=== PATIENT | female | born 1930 | race Caucasian/White ===

== ENCOUNTER 2017-03-18 07:46 | Day surgery (SDC) | payer OTHER ==
[2017-03-13 12:09] VITALS: BMI 30.4
[2017-03-18] MEDS ORDERED: PROPOFOL 20 ML ONE (08:06)
[2017-03-18] MEDS ORDERED: LIDOCAINE HCL/PF 2% SDV 5ML VIAL ONE (08:07)
[2017-03-18 10:51] VITALS: BP 122/78; PULSE 79; TEMP 98
--- NOTE | 2017-03-20 14:38 | PATH ---
Surgical Pathology Report Patient Name: ABHIJEET DENNIS [facility]. Rec. #: [id number] /Age/Gender: 1930 (Age: 87) / F Account: [id number] Location: [facility]-ENDOSCOPY Taken: 03/18/2017 Received: 03/18/2017 Reported: 03/20/2017 Physicians: Rafael Bradley M.D. Specimen(s) Received BX ANTRUM Clinical History Preoperative diagnoses: Dysphagia Postoperative diagnosis: Gastritis Final Diagnosis STOMACH, ANTRUM, BIOPSY: MILD CHRONIC GASTRITIS WITH INTESTINAL METAPLASIA. NO DYSPLASIA IDENTIFIED. IMMUNOSTAIN FOR H. PYLORI IS NEGATIVE. Electronically Signed John Hull M.D. Gross Description Received in formalin, labeled "antrum" are 3 mendosa, irregular portions of soft tissue ranging from 0.2-0.5 cm. in greatest dimension. The specimens are submitted in toto in one cassette. 03/19/201703/19/2017
== END 2017-03-18 10:54 ==
LOC: FASU-ENDO 07:46
PROVIDERS: ATTEND Internal Medicine Gastroenterology
PROC: 0DB68ZX Excision of Stomach, Via Natural or Artificial Opening Endoscopic, Diagnostic (ICD-10-PCS; principal; 2017-03-18 09:49)
PROC: 0D738ZZ Dilation of Lower Esophagus, Via Natural or Artificial Opening Endoscopic (ICD-10-PCS; 2017-03-18 09:49)
DX: K22.2 Esophageal obstruction (principal); K29.50 Unspecified chronic gastritis without bleeding; I25.10 Atherosclerotic heart disease of native coronary artery without angina pectoris; I10 Essential (primary) hypertension; E78.00 Pure hypercholesterolemia, unspecified
CPT/HCPCS: 88305-TC; 88342-TC

== ENCOUNTER 2017-06-01 13:43 | Inpatient (IN) | payer OTHER ==
[2017-06-01 13:55] VITALS: BMI 25.3
--- NOTE | 2017-06-01 14:02 | PDOC ---
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 Pt noted that the wound did not look good this morning in the clinic, but denies fever/chills, nausea, vomiting, cough,chest pain, SOB, dysuria. Patient has cardiacstents and peripheral stents in the RLE. She did not have transfer documents from [facility] to indicate whether or not she is currently on antibiotics. The note to the ED indicated that the patient will need angiogram. 06/01/17 15:02 Timing/Duration: constant Severity: moderate Associated Symptoms: reports: loss of appetite, weakness (bilateral paresis from waist down). denies: chest pain, cough, diaphoresis, fever/chills, nausea/ vomiting, shortness of breath, syncope Past History - Travel Traveled outside of the country in the last 30 days: No Close contact w/someone who was outside of country & ill: No - Past Medical History Allergies/Adverse Reactions: Allergies Allergy/AdvReac Type Severity Reaction Status Date / Time No Known Allergies Allergy Verified 06/01/17 15:53 Home Medications: Ambulatory Orders Bumetanide 0.5 mg PO DAILY 05/12/14 Clopidogrel Bisulfate [Clopidogrel] 75 mg PO DAILY 05/12/14 Dronedarone HCl [Multaq] 400 mg PO BID 05/12/14 Esomeprazole Mag Trihydrate [Nexium] 40 mg PO DAILY 05/12/14 Fesoterodine Fumarate [Toviaz] 4 mg PO DAILY 05/12/14 Acetaminophen [Tylenol .Regular Strength -] 650 mg PO BID 03/13/17 Atorvastatin Ca [Lipitor] 20 mg PO HS 03/13/17 Calcium Carb/Magnesium Hydrox [Antacid Chewable Tablet] 1 each PO BID 03/13/17 Carvedilol [Coreg] 3.125 mg PO DAILY 03/13/17 Cyclosporine [Restasis] 1 drop OU BID 03/13/17 Gabapentin [Neurontin] 400 mg PO TID 03/13/17 Multivit-Min/Iron Fum/Folic AC [Biihw-Wdstijw-Gdpqhtby Tablet] 1 tab PO DAILY Aspirin [ASA -] 81 mg PO DAILY tab.chew 04/17/17 Docusate Sodium [Colace -] 100 mg PO BID PRN capsule 04/17/17 Heparin - 5,000 unit SQ BID vial 04/17/17 Tolterodine Tartrate LA [Detrol LA -] 4 mg PO DAILY cap.sr.24h 04/17/17 Tramadol HCl 1 tab PO TID 06/01/17 Unobtainable Home Med List 06/01/17 Anemia: No Asthma: No Cancer: No Cardiac Disorders: Yes (ASHD CARDIAC STENTS AND CABG, VASCULAR DISEASE) CVA: No COPD: No CHF: Yes Dementia: No Diabetes: No GI Disorders: Yes (COLON POLYPS, ESOPHAGEAL STRICTURE) Disorders: No HTN: Yes Hypercholesterolemia: Yes Liver Disease: No Seizures: No Thyroid Disease: No Other medical history: pvd, bypass 2013 - Surgical History Abdominal Surgery: Yes Appendectomy: No Cardiac Surgery: Yes (QUADRUPLE CABG 2007) Cholecystectomy: No Lung Surgery: No Neurologic Surgery: No Orthopedic Surgery: No - Immunization History Immunization Up to Date: Yes - Suicide/Smoking/Psychosocial Hx Smoking History: Never smoked Have you smoked in the past 12 months: No If you are a former smoker, when did you quit?: 1994 Information on smoking cessation initiated: No Hx Alcohol Use: No Drug/Substance Use Hx: No Substance Use Type: None Hx Substance Use Treatment: No Review of Systems - Review of Systems Able to Perform ROS?: Yes Is the patient limited Italian proficient: No Constitutional: Yes: Loss of Appetite (noted weight loss for 1 month), Malaise, Weakness (Bilateral LE), Unintentional Wgt. Loss. No: Chills, Diaphoresis, Fever, Night Sweats HEENTM: No: Eye Pain, Blurred Vision, Tearing, Throat Pain, Throat Swelling, Difficulty Swallowing Respiratory: No: Cough, Orthopnea, Shortness of Breath, SOB at Rest, Wheezing, Productive cough Cardiac (ROS): No: Chest Pain, Edema, Palpitations, Syncope, Chest Tightness ABD/GI: No: Abdominal Distended : No: Burning, Dysuria, Flank Pain Musculoskeletal: Yes: Other (pain on LLE with 2nd toe gangrene) Neurological: Yes: Numbness (LLE), Paresthesia (LLE), Other (Wheelchair bound) *Physical Exam - Vital Signs Last Vital Signs Temp Pulse Resp BP Pulse Ox 97 F L 95 H 18 145/77 100 06/01/17 13:53 06/01/17 13:53 06/01/17 13:53 06/01/17 13:53 06/01/17 13:53 Heart Score/ECG Review - Electrocardiogram EKG: Normal - Age Age: >/= 65 - ECG Intrepretation Rhythm: Regular Rhythm - [place]: Normal - P and DE Delta Wave(s) Present: No WPW: No - QRS Poor R Wave Progression: No - ST and T Early Repolarization: No Non Specific ST-T Wave changes: No - ECG Impressions Normal ECG: Yes Torsades flo Pointes: No WPW: No ED Treatment Course - LABORATORY CBC & Chemistry Diagram: 06/01/17 16:05 06/01/17 16:05 Medical Decision Making - Medical Decision Making 06/01/17 15:00 Basic admission labs including CBC, CMP, PT, PTT, CXR, EKG have been ordered. Pt has been seen by Dr Matta in the past. I spoke with Dr Matta and he accepted her admission under him Patient has also been seen by Dr Mccarthy in the past. I spoke with him and he will evaluate the patient for antibiotic *DC/Admit/Observation/Transfer Diagnosis at time of Disposition: Gangrene, Leg wound, left - Discharge Dispostion Admit: Yes - Referrals Referrals: Daniele Ray MD [Primary Care Provider] - - Patient Instructions - Post Discharge Activity - Attestations Physician Attestion: 06/01/17 15:09 Ana Rosa Salazar MD
[2017-06-01] MEDS ORDERED: morphine CARPU-JECT 2 MG/1 ML DISP.SYRIN IVPUSH ONE (15:23)
--- NOTE | 2017-06-01 15:45 | PDOC ---
Attending Attestation - Resident Resident Name: MarieAna Rosa I - ED Attending Attestation I have performed the following: I have examined & evaluated the patient, The case was reviewed & discussed with the resident, I agree w/resident's findings & plan, Exceptions are as noted - HPI HPI: 06/01/17 15:42 87 year old female with CAD, CHF, HTN, PVD, GERD and osteoarthritis, colonic polyps sent from wound clinic for admission. 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 No fevers, or chills. Was evaluated in clinic and sent to ER for admission for IV abx. - Physicial Exam PE: 06/01/17 15:42 GENERAL: Awake, alert, and fully oriented, in no acute distress. HEAD: No signs of trauma EYES: PERRLA, EOMI, sclera anicteric, conjunctiva clear ENT: Auricles normal inspection, hearing grossly normal, nares patent NECK: Normal ROM, supple LUNGS: Breath sounds equal, clear to auscultation bilaterally. No wheezes, and no crackles HEART: Regular rate and rhythm, normal S1 and S2, no murmurs, rubs or gallops ABDOMEN: Soft, nontender. No guarding, no rebound. No masses EXTREMITIES: Bandage on LLE NEUROLOGICAL: Cranial nerves II through XII grossly intact. Normal speech - Medical Decision Making 06/01/17 15:45 Vital Signs Temp Pulse Resp BP Pulse Ox 97 F L 95 H 18 145/77 100 06/01/17 13:53 06/01/17 13:53 06/01/17 13:53 06/01/17 13:53 06/01/17 13:53 Left foot infection. I agree with the residents plan. Labs including cultures. IV abx Admission Heart Score/ECG Review #1 ECG reviewed & interpreted by me at: 15:50 06/01/17 16:14 NSR 95, no std/santiago, normal axis, normal intervals, QTC 475 msec
[2017-06-01 16:17] LABS: BASO % 0.7 % (0-2.0); EOS % 1.5 % (0-4.5); HEMATOCRIT 37.7 % (32.4-45.2); HEMOGLOBIN 12.5 GM/dL (10.7-15.3); LYMPH % 24.9 % (8-40); MCH 30.2 pg (25.7-33.7); MCHC 33.3 g/dl (32.0-36.0); MEAN CELL VOLUME 90.8 fl (80-96); MONO % 6.9 % (3.8-10.2); PLATELET COUNT 344 K/MM3 (134-434); RBC 4.15 M/mm3 (3.60-5.2); WHITE BLOOD COUNT 11.1 K/mm3 (4.0-10.0)
[2017-06-01 16:37] LABS: INR 1.19 (0.82-1.09); PROTHROMBIN TIME (PATIENT) 13.5 SEC (9.98-11.88)
[2017-06-01 16:39] LABS: ALBUMIN 3.9 g/dl (3.4-5.0); ALK PHOS 81 U/L (45-117); ANION GAP 9 (8-16); BILIRUBIN,TOTAL 0.4 mg/dL (0.2-1.0); BLOOD UREA NITROGEN 11 mg/dL (7-18); CALCIUM 9.5 mg/dL (8.5-10.1); CHLORIDE 99 mmol/L (98-107); CO2 26 mmol/L (21-32); CREATININE 0.8 mg/dL (0.55-1.02); GLUCOSE,RANDOM 83 mg/dL (74-106); SGPT/ALT 18 U/L (12-78); SODIUM 134 mmol/L (136-145); TOT PROT 8.9 g/dl (6.4-8.2)
[2017-06-01 16:41] LABS: SGOT/AST 39 U/L (15-37)
[2017-06-01] MEDS ORDERED: DOCUSATE SODIUM 100 MG CAPSULE (FP) PO PRN (16:59)
--- NOTE | 2017-06-01 17:01 | CON.ID ---
Consult Consult Specialty:: infectious diseases Reason for Consultation:: gangrene of the foot - History of Present Illness Chief Complaint: pain in the leg and change in color of the heel History of Present Illness: 87 year old female with CAD, CHF, HTN, PVD, GERD and osteoarthritis, colonic polyps sent from wound clinic for admission. 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 No fevers, or chills. Was evaluated in clinic and sent to ER for admission for IV abx. i know this patient from last admission patient also has developed gangrene of the heel denies any other symptoms - History Source History Provided By: Patient Limitations to Obtaining History: No Limitations - Alcohol/Substance Use Hx Alcohol Use: No - Smoking History Smoking history: Never smoked Have you smoked in the past 12 months: No If you are a former smoker, when did you quit?: 1994 Home Medications - Allergies Allergies/Adverse Reactions: Allergies Allergy/AdvReac Type Severity Reaction Status Date / Time No Known Allergies Allergy Verified 06/01/17 15:53 - Home Medications Home Medications: Ambulatory Orders Bumetanide 0.5 mg PO DAILY 05/12/14 Clopidogrel Bisulfate [Clopidogrel] 75 mg PO DAILY 05/12/14 Dronedarone HCl [Multaq] 400 mg PO BID 05/12/14 Esomeprazole Mag Trihydrate [Nexium] 40 mg PO DAILY 05/12/14 Fesoterodine Fumarate [Toviaz] 4 mg PO DAILY 05/12/14 Acetaminophen [Tylenol .Regular Strength -] 650 mg PO BID 03/13/17 Atorvastatin Ca [Lipitor] 20 mg PO HS 03/13/17 Calcium Carb/Magnesium Hydrox [Antacid Chewable Tablet] 1 each PO BID 03/13/17 Carvedilol [Coreg] 3.125 mg PO DAILY 03/13/17 Cyclosporine [Restasis] 1 drop OU BID 03/13/17 Gabapentin [Neurontin] 400 mg PO TID 03/13/17 Multivit-Min/Iron Fum/Folic AC [Letdp-Ckdfbdi-Cirmvgzu Tablet] 1 tab PO DAILY Aspirin [ASA -] 81 mg PO DAILY tab.chew 04/17/17 Docusate Sodium [Colace -] 100 mg PO BID PRN capsule 04/17/17 Heparin - 5,000 unit SQ BID vial 04/17/17 Tolterodine Tartrate LA [Detrol LA -] 4 mg PO DAILY cap.sr.24h 04/17/17 Tramadol HCl 1 tab PO TID 06/01/17 Review of Systems - Review of Systems Constitutional: reports: No Symptoms Eyes: reports: No Symptoms Neck: reports: No Symptoms Cardiovascular: reports: No Symptoms Genitourinary: reports: No Symptoms Musculoskeletal: reports: Joint Pain, Other Integumentary: reports: Change in Color, Erythema, Wound Neurological: reports: No Symptoms Endocrine: reports: No Symptoms Hematology/Lymphatic: reports: No Symptoms Psychiatric: reports: No Symptoms Physical Exam Vital Signs: Vital Signs Temperature 97 F L 06/01/17 13:53 Pulse Rate 95 H 06/01/17 13:53 Respiratory Rate 18 06/01/17 13:53 Blood Pressure 145/77 06/01/17 13:53 O2 Sat by Pulse Oximetry (%) 100 06/01/17 13:53 Constitutional: Yes: Well Nourished, Calm, Mild Distress Cardiovascular: Yes: Regular Rate and Rhythm Respiratory: Yes: Regular, CTA Bilaterally Gastrointestinal: Yes: Normal Bowel Sounds, Soft Musculoskeletal: Yes: Other Extremities: Yes: Other (gangrene of the heel and the toe) Neurological: Yes: Alert, Oriented Psychiatric: Yes: Alert, Oriented Labs: CBC, BMP 06/01/17 16:05 06/01/17 16:05 Imaging - Results Chest X-ray: Report Reviewed, Image Reviewed Assessment/Plan Problem List - Problems (1) CAD (coronary artery disease) Code(s): I25.10 - ATHSCL HEART DISEASE OF [place] CORONARY ARTERY W/O ANG PCTRS (2) Gangrene Code(s): I96 - GANGRENE, NOT ELSEWHERE CLASSIFIED (3) HTN (hypertension) Code(s): I10 - ESSENTIAL (PRIMARY) HYPERTENSION Qualifiers: Hypertension type: essential hypertension Qualified Code(s): I10 - Essential (primary) hypertension (4) Hx of CABG Code(s): Z95.1 - PRESENCE OF AORTOCORONARY BYPASS GRAFT (5) Hypercholesterolemia Code(s): E78.00 - PURE HYPERCHOLESTEROLEMIA, UNSPECIFIED (6) Leg wound, left Code(s): S81.802A - UNSPECIFIED OPEN WOUND, LEFT LOWER LEG, INITIAL ENCOUNTER (7) Paroxysmal atrial fibrillation Code(s): I48.0 - PAROXYSMAL ATRIAL FIBRILLATION 8 gangrene of the left heel plan will start on abx await for cx vascular input patient will probably need revascularization
--- NOTE | 2017-06-01 17:03 | HP ---
Admitting History and Physical - Primary Care Physician PCP: Demar Paige - Admission History of Present Illness: dictated - Smoking History Smoking history: Never smoked Have you smoked in the past 12 months: No If you are a former smoker, when did you quit?: 1994 - Alcohol/Substance Use Hx Alcohol Use: No Home Medications - Allergies Allergies/Adverse Reactions: Allergies Allergy/AdvReac Type Severity Reaction Status Date / Time No Known Allergies Allergy Verified 06/01/17 15:53 - Home Medications Home Medications: Ambulatory Orders Bumetanide 0.5 mg PO DAILY 05/12/14 Clopidogrel Bisulfate [Clopidogrel] 75 mg PO DAILY 05/12/14 Dronedarone HCl [Multaq] 400 mg PO BID 05/12/14 Esomeprazole Mag Trihydrate [Nexium] 40 mg PO DAILY 05/12/14 Fesoterodine Fumarate [Toviaz] 4 mg PO DAILY 05/12/14 Acetaminophen [Tylenol .Regular Strength -] 650 mg PO BID 03/13/17 Atorvastatin Ca [Lipitor] 20 mg PO HS 03/13/17 Calcium Carb/Magnesium Hydrox [Antacid Chewable Tablet] 1 each PO BID 03/13/17 Carvedilol [Coreg] 3.125 mg PO DAILY 03/13/17 Cyclosporine [Restasis] 1 drop OU BID 03/13/17 Gabapentin [Neurontin] 400 mg PO TID 03/13/17 Multivit-Min/Iron Fum/Folic AC [Nyxpu-Ttlzaei-Ckyktjmx Tablet] 1 tab PO DAILY Aspirin [ASA -] 81 mg PO DAILY tab.chew 04/17/17 Docusate Sodium [Colace -] 100 mg PO BID PRN capsule 04/17/17 Heparin - 5,000 unit SQ BID vial 04/17/17 Tolterodine Tartrate LA [Detrol LA -] 4 mg PO DAILY cap.sr.24h 04/17/17 Tramadol HCl 1 tab PO TID 06/01/17 Unobtainable Home Med List 06/01/17 Physical Examination Vital Signs: Vital Signs Temperature 97 F L 06/01/17 13:53 Pulse Rate 95 H 06/01/17 13:53 Respiratory Rate 18 06/01/17 13:53 Blood Pressure 145/77 06/01/17 13:53 O2 Sat by Pulse Oximetry (%) 100 06/01/17 13:53 Labs: CBC, BMP 06/01/17 16:05 06/01/17 16:05 Imaging - Results Chest X-ray: Report Reviewed EKG: Report Reviewed Problem List - Problems (1) Leg wound, left Code(s): S81.802A - UNSPECIFIED OPEN WOUND, LEFT LOWER LEG, INITIAL ENCOUNTER
[2017-06-01] MEDS ORDERED: PIPERACILLIN/TAZOB 3.375 GM 3.375 GM/50 ML BAG IVPB ONE (17:13)
[2017-06-01] MEDS: PIPERACILLIN/TAZOB 3.375 GM 3.375 GM in DEXTROSE 5%-WATER - 50 ML IVPB SCH (17:56)
--- NOTE | 2017-06-01 18:12 | PN ---
Progress Note (short form) - Note Progress Note: VAscular surgery Pt seen and examined in wound care today. Left second toe gangrene. History of cabg, and right lower ext bypass. Pt will need left lower ext angiogram. Please clear from a medical and cardiology standpoint. Jose Elias Hopkins DO
[2017-06-01 18:52] LABS: PLATELET ESTIMATE ADEQUATE
--- NOTE | 2017-06-01 19:17 | HP ---
DATE OF ADMISSION: 06/01/2017 This patient is an 87-year-old female with extensive past medical history of coronary artery disease, CHF, peripheral vascular disease, arthritis, diabetic neuropathy, osteoporosis, as well as history of hypertension, is admitted from Wound Care Clinic secondary to left 2nd toe gangrene with SFA occlusion. Dr. Hopkins is planning to do angiogram on her. Patient is a resident of [facility]. The patient was recently admitted to the hospital also a couple of months ago secondary to pneumonia. The patient was seen by me in the emergency room. Chart is reviewed and case also discussed with the emergency room physician as well as with patient's private PMD. PAST MEDICAL HISTORY: As mentioned. The patient has no known allergies. Patient's home medication list reviewed, as documented in the emergency room records. FAMILY HISTORY: Nothing available. PERSONAL HISTORY: Patient is ex-smoker, quit many years ago. REVIEW OF SYMPTOMS: Negative for chest pain or shortness of breath. Negative for abdominal pain. Negative for cough. Negative for headache or dizziness. Positive for numbness and pain in the feet and legs. PHYSICAL EXAMINATION: General: She is comfortable, sitting in the chair. Neck: Supple. Eyes: Pupils are reactive. Lungs: Clear to auscultation. Heart: Heart sounds regular. Abdomen: Soft. Extremities: Left lower extremity dressing in place. Right lower extremity pulses present but feeble. She is also status post bypass in right lower extremity. CBC showed slightly elevated white count 11.1, INR is 1.19. Electrolytes essentially okay. Chest x-ray did not show any focal infiltrate. ASSESSMENT AND PLAN: The patient is an 87-year-old white female with extensive past medical history, as mentioned, is being admitted to the hospital due to left 2nd toe gangrene. Further workup to be done, including angiogram. Will discuss with vascular surgeon, Dr. Hopkins. Antibiotics per ID. I also spoke with ID, Dr. Mccarthy, and he is going to follow up with the patient. Medication orders written. Monitor blood sugar. Will consult Cardiology also. Further recommendations will be guided by clinical course. HERRERA HEATH M.D. RAJENDRA/[id number]
[2017-06-01] MEDS ORDERED: MORPHINE SULFATE 10 MG/1 ML *VIAL ONE (20:29)
[2017-06-01] MEDS: morphine SULFATE 4 MG/ML VIAL IVPUSH PRN (20:45)
[2017-06-01] MEDS ORDERED: traMADol HCL 50 MG TABLET ONE (21:35)
[2017-06-01] MEDS ORDERED: traMADol HCL 50 MG TABLET PO PRN (22:00)
[2017-06-01] MEDS: HEPARIN NA (PORCINE) 5,000 UNITS/ML 1ML VIAL SQ SCH (22:01)
[2017-06-01] MEDS: ATORVASTATIN CA 20 MG TABLET (FP) PO SCH (22:01)
[2017-06-01] MEDS: CARVEDILOL 3.125 MG TABLET (FP) PO SCH (22:01)
[2017-06-01] MEDS: DRONEDARONE HCL 400 MG TAB (FP) PO SCH (22:02)
[2017-06-01] MEDS: traMADol HCL 50 MG TABLET PO SCH (22:02)
[2017-06-01] MEDS: GABAPENTIN 400 MG CAPSULE (FP) PO SCH (22:02)
[2017-06-02] MEDS: ACETAMINOPHEN 325 MG TABLET (FP) PO PRN ×4 (00:37→19:07)
[2017-06-02] MEDS ORDERED: PIPERACILLIN/TAZOBACTAM 3.375 GM VIAL IVPB ONE ×3 (01:44→18:59)
[2017-06-02] MEDS ORDERED: DEXTROSE 5%-WATER - 50 ML IVPB ONE ×3 (01:44→18:59)
[2017-06-02] MEDS: PIPERACILLIN/TAZOB 3.375 GM 3.375 GM in DEXTROSE 5%-WATER - 50 ML IVPB SCH ×3 (01:59→19:05)
[2017-06-02] MEDS: morphine SULFATE 4 MG/ML VIAL IVPUSH PRN (02:07)
[2017-06-02] MEDS: traMADol HCL 50 MG TABLET PO SCH (06:20)
[2017-06-02] MEDS: GABAPENTIN 400 MG CAPSULE (FP) PO SCH ×3 (06:20→21:35)
[2017-06-02 07:58] LABS: BASO % 0.4 % (0-2.0); EOS % 2.3 % (0-4.5); HEMATOCRIT 32.4 % (32.4-45.2); HEMOGLOBIN 10.7 GM/dL (10.7-15.3); LYMPH % 24.9 % (8-40); MCH 30.3 pg (25.7-33.7); MCHC 33.2 g/dl (32.0-36.0); MEAN CELL VOLUME 91.4 fl (80-96); MEAN PLT VOLUME 9.6 fl (7.5-11.1); MONO % 10.2 % (3.8-10.2); NEUT % 62.2 % (42.8-82.8); PLATELET COUNT 262 K/MM3 (134-434); RBC 3.54 M/mm3 (3.60-5.2); RDW 16.6 % (11.6-15.6); WHITE BLOOD COUNT 9.9 K/mm3 (4.0-10.0)
[2017-06-02 08:38] LABS: CHLORIDE 104 mmol/L (98-107); POTASSIUM 4.2 mmol/L (3.5-5.1); SODIUM 137 mmol/L (136-145)
[2017-06-02 08:57] LABS: ALK PHOS 64 U/L (45-117); ANION GAP 9 (8-16); BILIRUBIN,TOTAL 0.2 mg/dL (0.2-1.0); BLOOD UREA NITROGEN 15 mg/dL (7-18); CALCIUM 8.6 mg/dL (8.5-10.1); CO2 24 mmol/L (21-32); CREATININE 0.9 mg/dL (0.55-1.02); GLUCOSE,RANDOM 73 mg/dL (74-106); SGOT/AST 20 U/L (15-37); SGPT/ALT 12 U/L (12-78); TOT PROT 6.7 g/dl (6.4-8.2)
--- NOTE | 2017-06-02 09:08 | PN ---
Progress Note (short form) - Note Progress Note: Pt will need LLE angiogram. Awaiting medical and cardio clearances
--- NOTE | 2017-06-02 09:58 | CON.CARD ---
Consult Consult Specialty:: Cardiology Referred by:: Dr. Galindo Matta Reason for Consultation:: Cardiac evaluation and cardiac clearance - History of Present Illness Chief Complaint: Left lower extremity pain History of Present Illness: Patient is an 87 year old female of [place] with underlying history of coronary artery disease, s/p CABG (has a midline sternotomy wound), angina pectoris, hypertension, hypercholesterolemia, possible diabetic neuropathy ( hemoglobin A1c of 6.3) and PAD post lower extremity bypass (right) who presents with left lower extremity wound. She also states that she has had cardiac stent at [facility] in the past. She follows with Dr. Jarrell Ray ( [employer] who practices in [place]). She also has history of paroxysmal atrial fibrillation for which she takes Warfarin and Multaq. Currently, she denies chest pain, shortness of breath or palpitations. She denies paroxysmal nocturnal dyspnea or orthopnea. She denies fever or chills. She denies nausea, vomiting, diarrhea or abdominal pain. She denies headache or lightheadedness. Cardiology consultation was called for cardiac clearance. - History Source History Provided By: Patient, Medical Record Limitations to Obtaining History: No Limitations - Past Medical History Cardio/Vascular: Yes: AFIB, CAD (CABG), CHF, HTN, Hyperlipdemia Endocrine: Yes: Other (Possible diabetes (HGB A!C 6.3)) - Past Surgical History Past Surgical History: Yes: CABG, Cataract Removal, Hysterectomy, Stent Additional Surgical History: peripheral artery bypass - Alcohol/Substance Use Hx Alcohol Use: No - Smoking History Smoking history: Former smoker Have you smoked in the past 12 months: No If you are a former smoker, when did you quit?: 1994 Home Medications - Allergies Allergies/Adverse Reactions: Allergies Allergy/AdvReac Type Severity Reaction Status Date / Time No Known Allergies Allergy Verified 06/01/17 15:53 - Home Medications Home Medications: Ambulatory Orders Bumetanide 0.5 mg PO DAILY 05/12/14 Clopidogrel Bisulfate [Clopidogrel] 75 mg PO DAILY 05/12/14 Dronedarone HCl [Multaq] 400 mg PO BID 05/12/14 Esomeprazole Mag Trihydrate [Nexium] 40 mg PO DAILY 05/12/14 Fesoterodine Fumarate [Toviaz] 4 mg PO DAILY 05/12/14 Acetaminophen [Tylenol .Regular Strength -] 650 mg PO BID 03/13/17 Atorvastatin Ca [Lipitor] 20 mg PO HS 03/13/17 Calcium Carb/Magnesium Hydrox [Antacid Chewable Tablet] 1 each PO BID 03/13/17 Carvedilol [Coreg] 3.125 mg PO DAILY 03/13/17 Cyclosporine [Restasis] 1 drop OU BID 03/13/17 Gabapentin [Neurontin] 400 mg PO TID 03/13/17 Multivit-Min/Iron Fum/Folic AC [Qjjvq-Alouezw-Fykcikqw Tablet] 1 tab PO DAILY Aspirin [ASA -] 81 mg PO DAILY tab.chew 04/17/17 Docusate Sodium [Colace -] 100 mg PO BID PRN capsule 04/17/17 Heparin - 5,000 unit SQ BID vial 04/17/17 Tolterodine Tartrate LA [Detrol LA -] 4 mg PO DAILY cap.sr.24h 04/17/17 Tramadol HCl 1 tab PO TID 06/01/17 Unobtainable Home Med List 06/01/17 Family Disease History - Family Disease History Family Disease History: Heart Disease: Father, [place]: Mother (esophageal), Brother (esophageal) Review of Systems - Review of Systems Constitutional: denies: Chills, Fever Cardiovascular: denies: Chest Pain, Palpitations, Shortness of Breath Respiratory: denies: Cough, Hemoptysis, Orthopnea, PND, SOB, SOB on Exertion Gastrointestinal: denies: Abdominal Pain, Constipation, Diarrhea, Melena, Nausea , Rectal Bleeding, Vomiting Genitourinary: denies: Dysuria, Hematuria Neurological: denies: Dizziness, Headache, Seizure, Syncope Vital Signs: Vital Signs Temperature 98.2 F 06/02/17 06:44 Pulse Rate 82 06/02/17 06:44 Respiratory Rate 20 06/02/17 06:44 Blood Pressure 126/52 06/02/17 06:44 O2 Sat by Pulse Oximetry (%) 97 06/02/17 00:00 HENT: Yes: Atraumatic Neck: Yes: Supple Respiratory: Yes: CTA Bilaterally Gastrointestinal: Yes: Normal Bowel Sounds, Soft. No: Tenderness Cardiovascular: Yes: Regular Rate and Rhythm JVD: No Carotid Bruit: No PMI: Non-Displaced Heart Sounds: Yes: S1, S2 Murmur: Yes: Systolic Murmur (Soft KELLEN), Grade 1 Extremities: Yes: Other (left foot dressed) Edema: No - Other Data Labs, Other Data: CBC, BMP 06/02/17 06:40 06/02/17 06:40 INR, PTT INR 1.19 (0.82-1.09) H 06/01/17 16:05 Laboratory Results - last 24 hr 06/01/17 06/01/17 06/01/17 16:05 16:05 16:05 WBC 11.1 H RBC 4.15 D Hgb 12.5 D Hct 37.7 D MCV 90.8 MCH 30.2 MCHC 33.3 RDW 16.0 H Plt Count 344 D MPV 10.0 D Neutrophils % 66.0 Lymphocytes % 24.9 D Monocytes % 6.9 Eosinophils % 1.5 Basophils % 0.7 Platelet Estimate Adequate Platelet Comment PT with INR INR PTT (Actin FS) 28.6 Sodium 134 L Potassium 5.0 Chloride 99 Carbon Dioxide 26 Anion Gap 9 BUN 11 Creatinine 0.8 Creat Clearance w eGFR > 60 Random Glucose 83 Hemoglobin A1c % Calcium 9.5 Total Bilirubin 0.4 D AST 39 H ALT 18 Alkaline Phosphatase 81 Total Protein 8.9 H Albumin 3.9 06/01/17 06/02/17 06/02/17 16:05 06:40 06:40 WBC 9.9 RBC 3.54 L Hgb 10.7 D Hct 32.4 MCV 91.4 MCH 30.3 MCHC 33.2 RDW 16.6 H Plt Count 262 D MPV 9.6 Neutrophils % 62.2 Lymphocytes % 24.9 Monocytes % 10.2 Eosinophils % 2.3 Basophils % 0.4 Platelet Estimate Platelet Comment PT with INR 13.50 H INR 1.19 H PTT (Actin FS) Sodium 137 Potassium 4.2 Chloride 104 Carbon Dioxide 24 Anion Gap 9 BUN 15 Creatinine 0.9 Creat Clearance w eGFR 59.51 Random Glucose 73 L Hemoglobin A1c % Calcium 8.6 Total Bilirubin 0.2 D AST 20 ALT 12 Alkaline Phosphatase 64 Total Protein 6.7 Albumin 3.0 L 06/02/17 06:40 WBC RBC Hgb Hct MCV MCH MCHC RDW Plt Count MPV Neutrophils % Lymphocytes % Monocytes % Eosinophils % Basophils % Platelet Estimate Platelet Comment PT with INR INR PTT (Actin FS) Sodium Potassium Chloride Carbon Dioxide Anion Gap BUN Creatinine Creat Clearance w eGFR Random Glucose Hemoglobin A1c % 6.3 H Calcium Total Bilirubin AST ALT Alkaline Phosphatase Total Protein Albumin Sinus rhythm with no significant ST-T abnormality Echo: Pending Imaging - Results Chest X-ray: Report Reviewed (Atelectasis) EKG: Report Reviewed Problem List - Problems (1) CAD (coronary artery disease) Code(s): I25.10 - ATHSCL HEART DISEASE OF [place] CORONARY ARTERY W/O ANG PCTRS (2) Hx of CABG Code(s): Z95.1 - PRESENCE OF AORTOCORONARY BYPASS GRAFT (3) Paroxysmal atrial fibrillation Code(s): I48.0 - PAROXYSMAL ATRIAL FIBRILLATION (4) HTN (hypertension) Code(s): I10 - ESSENTIAL (PRIMARY) HYPERTENSION Qualifiers: Hypertension type: essential hypertension Qualified Code(s): I10 - Essential (primary) hypertension (5) Hypercholesterolemia Code(s): E78.00 - PURE HYPERCHOLESTEROLEMIA, UNSPECIFIED (6) Elevated hemoglobin A1c Code(s): R73.09 - OTHER ABNORMAL GLUCOSE (7) Gangrene Code(s): I96 - GANGRENE, NOT ELSEWHERE CLASSIFIED (8) Leg wound, left Code(s): S81.802A - UNSPECIFIED OPEN WOUND, LEFT LOWER LEG, INITIAL ENCOUNTER (9) Pneumonia Code(s): J18.9 - PNEUMONIA, UNSPECIFIED ORGANISM Assessment/Plan 1. Preoperative cardiovascular evaluation 2. Coronary artery disease post CABG, PCI/stent, angina pectoris 3. Paroxysmal atrial fibrillation currently in sinus rhythm on Warfarin therapy (currently INR reversed) [id number] score of at least 7 4. Hypertension 5. Hypercholesterolemia 6. Elevated Hemoglobin A1C with possible diabetic neuropathy - not on diabetes medication 7. PAD post lower extremity bypass currently with left SFA occlusion and left toe gangrene PLAN: 1. Continue Carvedilol 2. Consider adding ACEI or ARB as BP, renal function and electrolytes tolerates 3. Continue ASA and Plavix for now 4. Currently on Multaq (started by Dr. Ray) as patient does not exhibit any signs of heart failure 5. Transthoracic echocardiography to assess LV/RV and valvular function prior to vascular intervention 6. If patient were to undergo surgical intervention, she will need further cardiac work up including nuclear myocardial perfusion imaging study ( pharmacological) for risk stratification. For an angiography, it would be acceptable to proceed as currently she does not exhibit any ischemic symptoms, decompensated congestive heart failure or malignant arrhythmias 7. Eventually will need to restart Warfarin therapy with INR between 2-3 Further plans are to follow Rodolfo Malhotra MD
[2017-06-02] MEDS ORDERED: FESOTERODINE FUMARATE 4 MG PO SCH (10:00)
[2017-06-02] MEDS ORDERED: PT OWN MED DRAWER 7, Y5N ONE (10:08)
[2017-06-02] MEDS: PANTOPRAZOLE 40 MG TABLET (FP) PO SCH (10:16)
[2017-06-02] MEDS: ASPIRIN 81 MG CHEWABLE TABLETS PO SCH (10:16)
[2017-06-02] MEDS: MULTIVITAMINS THER W-MINERALS COMBO TABLET (FP) PO SCH (10:16)
[2017-06-02] MEDS: HEPARIN NA (PORCINE) 5,000 UNITS/ML 1ML VIAL SQ SCH ×2 (10:17→22:08)
[2017-06-02] MEDS: CLOPIDOGREL BISULFATE 75 MG TABLET (FP) PO SCH (10:17)
[2017-06-02] MEDS: TOLTERODINE TARTRATE LA 4 MG CAP.SR.24H (FP) PO SCH (10:20)
[2017-06-02] MEDS: CARVEDILOL 3.125 MG TABLET (FP) PO SCH ×2 (10:20→21:35)
--- NOTE | 2017-06-02 10:49 | PN ---
Progress Note, Physician Chief Complaint: Events noted Pt c/o pain in left leg Dressing removed - Current Medication List Current Medications: Active Medications Acetaminophen (Tylenol -) 650 mg PO Q4H PRN PRN Reason: PAIN LEVEL 1-5 Last Admin: 06/02/17 04:20 Dose: 650 mg Aspirin (Asa -) 81 mg PO DAILY [facility] Last Admin: 06/02/17 10:16 Dose: 81 mg Atorvastatin Calcium (Lipitor -) 20 mg PO HS [facility] Last Admin: 06/01/17 22:01 Dose: 20 mg Bumetanide (Bumex -) 0.5 mg PO DAILY [facility] Carvedilol (Coreg -) 3.125 mg PO BID [facility] Last Admin: 06/02/17 10:20 Dose: 3.125 mg Clopidogrel Bisulfate (Plavix -) 75 mg PO DAILY [facility] Last Admin: 06/02/17 10:17 Dose: 75 mg Docusate Sodium (Colace -) 100 mg PO BID PRN PRN Reason: CONSTIPATION Dronedarone (Multaq -) 400 mg PO BID [facility] Last Admin: 06/01/17 22:02 Dose: 400 mg Gabapentin (Neurontin -) 400 mg PO TID [facility] Last Admin: 06/02/17 06:20 Dose: 400 mg Heparin Sodium (Porcine) (Heparin -) 5,000 unit SQ BID [facility] Last Admin: 06/02/17 10:17 Dose: 5,000 unit Piperacillin Sod/Tazobactam (Sod 3.375 gm/ Dextrose) 50 mls @ 100 mls/hr IVPB Q8H-IV [facility] PRN Reason: Protocol Last Admin: 06/02/17 10:16 Dose: 100 mls/hr Morphine Sulfate (Morphine Sulfate) 2 mg IVPUSH Q4H PRN PRN Reason: PAIN LEVEL 6-10 Last Admin: 06/02/17 02:07 Dose: 2 mg Multivitamins/Minerals (Theragran-M) 1 each PO DAILY [facility] Last Admin: 06/02/17 10:16 Dose: 1 each Oxycodone HCl (Roxicodone -) 5 mg PO Q4H PRN PRN Reason: PAIN LEVEL 6-10 Pantoprazole Sodium (Protonix -) 40 mg PO DAILY [facility] Last Admin: 06/02/17 10:16 Dose: 40 mg Tolterodine Tartrate (Detrol La -) 4 mg PO DAILY [facility] Last Admin: 06/02/17 10:20 Dose: 4 mg - Objective Vital Signs: Vital Signs Temperature 98.2 F 06/02/17 06:44 Pulse Rate 82 06/02/17 06:44 Respiratory Rate 20 06/02/17 06:44 Blood Pressure 126/52 06/02/17 06:44 O2 Sat by Pulse Oximetry (%) 97 06/02/17 00:00 Constitutional: Yes: No Distress Cardiovascular: Yes: Regular Rate and Rhythm, Murmur Respiratory: Yes: CTA Bilaterally Gastrointestinal: Yes: Normal Bowel Sounds, Soft. No: Tenderness Extremities: Yes: Other (left 2nd toe-- ulcer on tip, ulcer with black eschar in heel) Edema: Yes Edema: LLE: Trace Neurological: Yes: Alert, Oriented Psychiatric: Yes: Alert, Oriented Labs: CBC, BMP 06/02/17 06:40 06/02/17 06:40 INR, PTT INR 1.19 (0.82-1.09) H 06/01/17 16:05 Problem List - Problems (1) CAD (coronary artery disease) Code(s): I25.10 - ATHSCL HEART DISEASE OF [place] CORONARY ARTERY W/O ANG PCTRS (2) Gangrene Code(s): I96 - GANGRENE, NOT ELSEWHERE CLASSIFIED (3) HTN (hypertension) Code(s): I10 - ESSENTIAL (PRIMARY) HYPERTENSION Qualifiers: Hypertension type: essential hypertension Qualified Code(s): I10 - Essential (primary) hypertension (4) Hx of CABG Code(s): Z95.1 - PRESENCE OF AORTOCORONARY BYPASS GRAFT (5) Hypercholesterolemia Code(s): E78.00 - PURE HYPERCHOLESTEROLEMIA, UNSPECIFIED (6) Leg wound, left Code(s): S81.802A - UNSPECIFIED OPEN WOUND, LEFT LOWER LEG, INITIAL ENCOUNTER (7) Paroxysmal atrial fibrillation Code(s): I48.0 - PAROXYSMAL ATRIAL FIBRILLATION Assessment/Plan PLAN Continue with antibiotics Dry dressing daily Vascular and cardiology eval noted Echo pending continue with meds pain control with oxycodone PRN for angiogram
--- NOTE | 2017-06-02 11:38 | SPA.PREOP ---
- PRE-OP NOTE Dx: L 2nd toe gangrene with SFA occlusion Planned Procedure: LLE angiogram possible angioplasty Surgeon: Jose Elias Hopkins Consent: To be obtained after surgeon explains all risks, benefits and alternatives to patient and or HCP. Last Vital Signs Temp Pulse Resp BP Pulse Ox 98.2 F 82 20 126/52 97 06/02/17 06:44 06/02/17 06:44 06/02/17 06:44 06/02/17 06:44 06/02/17 00:00 Lab Results WBC 9.9 K/mm3 (4.0-10.0) 06/02/17 06:40 RBC 3.54 M/mm3 (3.60-5.2) L 06/02/17 06:40 Hgb 10.7 GM/dL (10.7-15.3) D 06/02/17 06:40 Hct 32.4 % (32.4-45.2) 06/02/17 06:40 MCV 91.4 fl (80-96) 06/02/17 06:40 MCHC 33.2 g/dl (32.0-36.0) 06/02/17 06:40 RDW 16.6 % (11.6-15.6) H 06/02/17 06:40 Plt Count 262 K/MM3 (134-434) D 06/02/17 06:40 Sodium 137 mmol/L (136-145) 06/02/17 06:40 Potassium 4.2 mmol/L (3.5-5.1) 06/02/17 06:40 Chloride 104 mmol/L (98-107) 06/02/17 06:40 Carbon Dioxide 24 mmol/L (21-32) 06/02/17 06:40 Anion Gap 9 (8-16) 06/02/17 06:40 BUN 15 mg/dL (7-18) 06/02/17 06:40 Creatinine 0.9 mg/dL (0.55-1.02) 06/02/17 06:40 Random Glucose 73 mg/dL (74-106) L 06/02/17 06:40 Calcium 8.6 mg/dL (8.5-10.1) 06/02/17 06:40 INR 1.19 (0.82-1.09) H 06/01/17 16:05 - ASSESSMENT/PLAN Problem List - Problems (1) Leg wound, left Assessment/Plan: 1. Plan on taking to OR 06/04/17 2. Make NPO after midnight except po meds 3. GI/DVT PPX 4. Medical optimization / clearance Code(s): S81.802A - UNSPECIFIED OPEN WOUND, LEFT LOWER LEG, INITIAL ENCOUNTER Visit type - Case Type Case Type: ED Admission
[2017-06-02] MEDS: PATIENT'S OWN MEDICATION (NON-FORMULARY) (Cyclosporine [Restasis] 1 DROP) OU SCH ×2 (11:45→11:46)
[2017-06-02] MEDS: oxyCODONE HCL 5 MG TABLET PO PRN ×3 (11:52→23:31)
[2017-06-02] MEDS: DRONEDARONE HCL 400 MG TAB (FP) PO SCH ×2 (11:53→21:37)
[2017-06-02] MEDS: BUMETANIDE 0.5 MG TABLET PO SCH (13:18)
[2017-06-02 13:19] LABS: URINE APPEARANCE CLOUDY; URINE BILIRUBIN NEGATIVE (<2.0 mg/dL); URINE COLOR YELLOW; URINE GLUCOSE (UA) NEGATIVE (NEGATIVE); URINE KETONE NEGATIVE (NEGATIVE); URINE NITRITE NEGATIVE (NEGATIVE); URINE PROTEIN NEGATIVE (NEGATIVE); URINE UROBILINOGEN NEGATIVE mg/dL (0.2-1.0)
[2017-06-02 13:20] LABS: URINE LEUK ESTERASE 3+ (NEGATIVE)
[2017-06-02 13:25] LABS: EPI CELLS FEW /HPF (FEW); URINE BACTERIA RARE /hpf (NONE SEEN); URINE MUCUS RARE
--- NOTE | 2017-06-02 13:47 | PN ---
Progress Note, Physician History of Present Illness: stable doing well no issues wound noted - Current Medication List Current Medications: Active Medications Acetaminophen (Tylenol -) 650 mg PO Q4H PRN PRN Reason: PAIN LEVEL 1-5 Last Admin: 06/02/17 11:52 Dose: 650 mg Aspirin (Asa -) 81 mg PO DAILY [facility] Last Admin: 06/02/17 10:16 Dose: 81 mg Atorvastatin Calcium (Lipitor -) 20 mg PO HS [facility] Last Admin: 06/01/17 22:01 Dose: 20 mg Bumetanide (Bumex -) 0.5 mg PO DAILY [facility] Last Admin: 06/02/17 13:18 Dose: 0.5 mg Carvedilol (Coreg -) 3.125 mg PO BID [facility] Last Admin: 06/02/17 10:20 Dose: 3.125 mg Clopidogrel Bisulfate (Plavix -) 75 mg PO DAILY [facility] Last Admin: 06/02/17 10:17 Dose: 75 mg Docusate Sodium (Colace -) 100 mg PO BID PRN PRN Reason: CONSTIPATION Dronedarone (Multaq -) 400 mg PO BID [facility] Last Admin: 06/02/17 11:53 Dose: 400 mg Gabapentin (Neurontin -) 400 mg PO TID [facility] Last Admin: 06/02/17 13:18 Dose: 400 mg Heparin Sodium (Porcine) (Heparin -) 5,000 unit SQ BID [facility] Last Admin: 06/02/17 10:17 Dose: 5,000 unit Piperacillin Sod/Tazobactam (Sod 3.375 gm/ Dextrose) 50 mls @ 100 mls/hr IVPB Q8H-IV [facility] PRN Reason: Protocol Last Admin: 06/02/17 10:16 Dose: 100 mls/hr Multivitamins/Minerals (Theragran-M) 1 each PO DAILY [facility] Last Admin: 06/02/17 10:16 Dose: 1 each Oxycodone HCl (Roxicodone -) 5 mg PO Q4H PRN PRN Reason: PAIN LEVEL 6-10 Last Admin: 06/02/17 11:52 Dose: 5 mg Pantoprazole Sodium (Protonix -) 40 mg PO DAILY [facility] Last Admin: 06/02/17 10:16 Dose: 40 mg Tolterodine Tartrate (Detrol La -) 4 mg PO DAILY [facility] Last Admin: 06/02/17 10:20 Dose: 4 mg - Objective Vital Signs: Vital Signs Temperature 98.2 F 06/02/17 06:44 Pulse Rate 82 06/02/17 06:44 Respiratory Rate 20 06/02/17 06:44 Blood Pressure 126/52 06/02/17 06:44 O2 Sat by Pulse Oximetry (%) 97 06/02/17 00:00 Constitutional: Yes: Calm, Mild Distress Cardiovascular: Yes: Regular Rate and Rhythm Respiratory: Yes: Regular, CTA Bilaterally Gastrointestinal: Yes: Normal Bowel Sounds, Soft Musculoskeletal: Yes: WNL Extremities: Yes: Other Wound/Incision: Yes: Open to air, Other (gangrene of the heel and discoloration of the toe) Neurological: Yes: Alert, Oriented Psychiatric: Yes: Alert Labs: CBC, BMP 06/02/17 06:40 06/02/17 06:40 INR, PTT INR 1.19 (0.82-1.09) H 06/01/17 16:05 Assessment/Plan Problem List - Problems (1) CAD (coronary artery disease) Code(s): I25.10 - ATHSCL HEART DISEASE OF [place] CORONARY ARTERY W/O ANG PCTRS (2) Gangrene Code(s): I96 - GANGRENE, NOT ELSEWHERE CLASSIFIED (3) HTN (hypertension) Code(s): I10 - ESSENTIAL (PRIMARY) HYPERTENSION Qualifiers: Hypertension type: essential hypertension Qualified Code(s): I10 - Essential (primary) hypertension (4) Hx of CABG Code(s): Z95.1 - PRESENCE OF AORTOCORONARY BYPASS GRAFT (5) Hypercholesterolemia Code(s): E78.00 - PURE HYPERCHOLESTEROLEMIA, UNSPECIFIED (6) Leg wound, left Code(s): S81.802A - UNSPECIFIED OPEN WOUND, LEFT LOWER LEG, INITIAL ENCOUNTER (7) Paroxysmal atrial fibrillation Code(s): I48.0 - PAROXYSMAL ATRIAL FIBRILLATION 8 gangrene of the left heel plan continue abx vascular input rest as per the primary team pressure off of the heel
--- NOTE | 2017-06-02 16:53 | EKG ---
Test Reason : Blood Pressure : / mmHG Vent. Rate : 095 BPM Atrial Rate : 095 BPM P-R Int : 146 ms QRS Dur : 068 ms QT Int : 378 ms P-R-T Axes : 049 011 061 degrees QTc Int : 475 ms POOR DATA QUALITY, INTERPRETATION MAY BE ADVERSELY AFFECTED NORMAL SINUS RHYTHM INFERIOR INFARCT , AGE UNDETERMINED ABNORMAL ECG WHEN COMPARED WITH ECG OF 10-APR-2017 15:46, ST NO LONGER DEPRESSED IN ANTERIOR LEADS Confirmed by MD Jaylen, José Miguel ([id number]) on 06/02/2017 4:53:25 PM Referred By: Confirmed By:José Miguel York MD
[2017-06-02] MEDS: ATORVASTATIN CA 20 MG TABLET (FP) PO SCH (21:35)
[2017-06-03] MEDS: ACETAMINOPHEN 325 MG TABLET (FP) PO PRN ×4 (00:01→21:53)
[2017-06-03] MEDS ORDERED: PIPERACILLIN/TAZOBACTAM 3.375 GM VIAL IVPB ONE ×3 (01:28→17:27)
[2017-06-03] MEDS ORDERED: DEXTROSE 5%-WATER - 50 ML IVPB ONE ×3 (01:28→17:27)
[2017-06-03] MEDS: PIPERACILLIN/TAZOB 3.375 GM 3.375 GM in DEXTROSE 5%-WATER - 50 ML IVPB SCH ×3 (01:37→17:36)
[2017-06-03] MEDS: GABAPENTIN 400 MG CAPSULE (FP) PO SCH ×3 (05:03→21:55)
[2017-06-03] MEDS: oxyCODONE HCL 5 MG TABLET PO PRN ×5 (05:03→21:52)
[2017-06-03 07:49] LABS: HEMATOCRIT 30.8 % (32.4-45.2); HEMOGLOBIN 10.1 GM/dL (10.7-15.3); MCHC 32.9 g/dl (32.0-36.0); MEAN PLT VOLUME 9.2 fl (7.5-11.1); PLATELET COUNT 256 K/MM3 (134-434); RBC 3.38 M/mm3 (3.60-5.2); RDW 16.1 % (11.6-15.6); WHITE BLOOD COUNT 13.7 K/mm3 (4.0-10.0)
[2017-06-03 08:16] LABS: ANION GAP 7 (8-16); BLOOD UREA NITROGEN 16 mg/dL (7-18); CALCIUM 8.2 mg/dL (8.5-10.1); CHLORIDE 106 mmol/L (98-107); CO2 26 mmol/L (21-32); CREATININE 0.9 mg/dL (0.55-1.02); GLUCOSE,RANDOM 81 mg/dL (74-106); POTASSIUM 3.9 mmol/L (3.5-5.1); SODIUM 139 mmol/L (136-145)
[2017-06-03] MEDS ORDERED: PT OWN MED DRAWER 7, Y5N ONE ×3 (09:32→21:44)
[2017-06-03] MEDS: ASPIRIN 81 MG CHEWABLE TABLETS PO SCH (09:34)
[2017-06-03] MEDS: CLOPIDOGREL BISULFATE 75 MG TABLET (FP) PO SCH (09:34)
[2017-06-03] MEDS: HEPARIN NA (PORCINE) 5,000 UNITS/ML 1ML VIAL SQ SCH ×2 (09:34→21:55)
[2017-06-03] MEDS: MULTIVITAMINS THER W-MINERALS COMBO TABLET (FP) PO SCH (09:34)
[2017-06-03] MEDS: CARVEDILOL 3.125 MG TABLET (FP) PO SCH ×2 (09:34→21:53)
[2017-06-03] MEDS: PANTOPRAZOLE 40 MG TABLET (FP) PO SCH (09:35)
[2017-06-03] MEDS: DRONEDARONE HCL 400 MG TAB (FP) PO SCH ×2 (09:36→21:56)
[2017-06-03] MEDS: TOLTERODINE TARTRATE LA 4 MG CAP.SR.24H (FP) PO SCH (09:36)
[2017-06-03] MEDS: BUMETANIDE 0.5 MG TABLET PO SCH (09:37)
--- NOTE | 2017-06-03 12:23 | PN ---
Progress Note, Physician History of Present Illness: Reports left foot ischemic discomfort. - Current Medication List Current Medications: Active Medications Acetaminophen (Tylenol -) 650 mg PO Q4H PRN PRN Reason: PAIN LEVEL 1-5 Last Admin: 06/03/17 09:35 Dose: 650 mg Aspirin (Asa -) 81 mg PO DAILY [facility] Last Admin: 06/03/17 09:34 Dose: 81 mg Atorvastatin Calcium (Lipitor -) 20 mg PO HS [facility] Last Admin: 06/02/17 21:35 Dose: 20 mg Bumetanide (Bumex -) 0.5 mg PO DAILY [facility] Last Admin: 06/03/17 09:37 Dose: 0.5 mg Carvedilol (Coreg -) 3.125 mg PO BID [facility] Last Admin: 06/03/17 09:34 Dose: 3.125 mg Clopidogrel Bisulfate (Plavix -) 75 mg PO DAILY [facility] Last Admin: 06/03/17 09:34 Dose: 75 mg Docusate Sodium (Colace -) 100 mg PO BID PRN PRN Reason: CONSTIPATION Last Admin: 06/02/17 19:07 Dose: 100 mg Dronedarone (Multaq -) 400 mg PO BID [facility] Last Admin: 06/03/17 09:36 Dose: 400 mg Gabapentin (Neurontin -) 400 mg PO TID [facility] Last Admin: 06/03/17 05:03 Dose: 400 mg Heparin Sodium (Porcine) (Heparin -) 5,000 unit SQ BID [facility] Last Admin: 06/03/17 09:34 Dose: 5,000 unit Piperacillin Sod/Tazobactam (Sod 3.375 gm/ Dextrose) 50 mls @ 100 mls/hr IVPB Q8H-IV [facility] PRN Reason: Protocol Last Admin: 06/03/17 09:34 Dose: 100 mls/hr Multivitamins/Minerals (Theragran-M) 1 each PO DAILY [facility] Last Admin: 06/03/17 09:34 Dose: 1 each Oxycodone HCl (Roxicodone -) 5 mg PO Q4H PRN PRN Reason: PAIN LEVEL 6-10 Last Admin: 06/03/17 09:34 Dose: 5 mg Pantoprazole Sodium (Protonix -) 40 mg PO DAILY [facility] Last Admin: 06/03/17 09:35 Dose: 40 mg Tolterodine Tartrate (Detrol La -) 4 mg PO DAILY [facility] Last Admin: 06/03/17 09:36 Dose: 4 mg - Objective Vital Signs: Vital Signs Temperature 98.6 F 06/03/17 10:39 Pulse Rate 87 06/03/17 10:39 Respiratory Rate 18 06/03/17 10:39 Blood Pressure 127/68 06/03/17 10:39 O2 Sat by Pulse Oximetry (%) 97 06/03/17 09:00 Constitutional: Yes: No Distress, Calm, Thin Neck: Yes: Supple Cardiovascular: Yes: Regular Rate and Rhythm Respiratory: Yes: Regular, CTA Bilaterally Gastrointestinal: Yes: Normal Bowel Sounds, Soft Edema: No Wound/Incision: Yes: Dressing Dry and Intact Labs: CBC, BMP 06/03/17 06:30 06/03/17 06:30 INR, PTT INR 1.19 (0.82-1.09) H 06/01/17 16:05 Problem List - Problems (1) Peripheral artery disease Code(s): I73.9 - PERIPHERAL VASCULAR DISEASE, UNSPECIFIED (2) CAD (coronary artery disease) Code(s): I25.10 - ATHSCL HEART DISEASE OF [place] CORONARY ARTERY W/O ANG PCTRS Qualifiers: Coronary Disease-Associated Artery/Lesion type: [place] artery [place] vs. transplanted heart: [place] heart Associated angina: without angina Qualified Code(s): I25.10 - Atherosclerotic heart disease of [place] coronary artery without angina pectoris (3) Gangrene Code(s): I96 - GANGRENE, NOT ELSEWHERE CLASSIFIED (4) Hx of CABG Code(s): Z95.1 - PRESENCE OF AORTOCORONARY BYPASS GRAFT (5) Hypercholesterolemia Code(s): E78.00 - PURE HYPERCHOLESTEROLEMIA, UNSPECIFIED (6) Leg wound, left Code(s): S81.802A - UNSPECIFIED OPEN WOUND, LEFT LOWER LEG, INITIAL ENCOUNTER Qualifiers: Encounter type: subsequent encounter Qualified Code(s): S81.802D - Unspecified open wound, left lower leg, subsequent encounter (7) Paroxysmal atrial fibrillation Code(s): I48.0 - PAROXYSMAL ATRIAL FIBRILLATION (8) S/P coronary artery stent placement Code(s): Z95.5 - PRESENCE OF CORONARY ANGIOPLASTY IMPLANT AND GRAFT (9) HTN (hypertension) Code(s): I10 - ESSENTIAL (PRIMARY) HYPERTENSION Qualifiers: Hypertension type: essential hypertension Qualified Code(s): I10 - Essential (primary) hypertension Assessment/Plan 06/02/2017 Echo: Normal biventricular size and fxn with mild TR 1. Pre-operative cardiovascular evaluation 2. Coronary artery disease post CABG, PCI/stent, angina pectoris 3. Paroxysmal atrial fibrillation currently in sinus rhythm on Warfarin therapy (currently INR reversed) [id number] score of at least 7 4. Hypertension 5. Hypercholesterolemia 6. Elevated Hemoglobin A1C with possible diabetic neuropathy - not on diabetes medication 7. PAD post right lower extremity bypass currently with left SFA occlusion and left 2nd toe gangrene PLAN: 1. Continue Carvedilol 3.125 bid, Lipitor 20 qhs 2. Start losartan 25 qd, d/c Bumex,and f/u renal function and electrolytes 3. Continue ASA 81 qd and Plavix 75 qd for now, would d/c ASA once INR is therapeutic 4. Currently on Multaq 400 bid (started by Dr. Ray) as patient does not exhibit any signs of heart failure 5. If patient were to undergo surgical intervention, she will need further cardiac work up including nuclear myocardial perfusion imaging study ( pharmacological) for risk stratification. For an LLE angiography and possible angioplasty, it would be acceptable to proceed as currently she does not exhibit any ischemic symptoms, decompensated congestive heart failure or malignant arrhythmias 6. Eventually will need to restart Warfarin therapy with INR between 2-3, DVT and GI prophylaxis 7. Empiric abx course
[2017-06-03] MEDS ORDERED: LOSARTAN POTASSIUM 25 MG TABLET PO SCH (12:45)
--- NOTE | 2017-06-03 13:16 | PN ---
Progress Note, Physician Chief Complaint: Events noted Pt c/o pain in left leg pt sitting in chair - Current Medication List Current Medications: Active Medications Acetaminophen (Tylenol -) 650 mg PO Q4H PRN PRN Reason: PAIN LEVEL 1-5 Last Admin: 06/03/17 09:35 Dose: 650 mg Aspirin (Asa -) 81 mg PO DAILY [facility] Last Admin: 06/03/17 09:34 Dose: 81 mg Atorvastatin Calcium (Lipitor -) 20 mg PO HS [facility] Last Admin: 06/02/17 21:35 Dose: 20 mg Carvedilol (Coreg -) 3.125 mg PO BID [facility] Last Admin: 06/03/17 09:34 Dose: 3.125 mg Clopidogrel Bisulfate (Plavix -) 75 mg PO DAILY [facility] Last Admin: 06/03/17 09:34 Dose: 75 mg Docusate Sodium (Colace -) 100 mg PO BID PRN PRN Reason: CONSTIPATION Last Admin: 06/02/17 19:07 Dose: 100 mg Dronedarone (Multaq -) 400 mg PO BID [facility] Last Admin: 06/03/17 09:36 Dose: 400 mg Gabapentin (Neurontin -) 400 mg PO TID [facility] Last Admin: 06/03/17 05:03 Dose: 400 mg Heparin Sodium (Porcine) (Heparin -) 5,000 unit SQ BID [facility] Last Admin: 06/03/17 09:34 Dose: 5,000 unit Piperacillin Sod/Tazobactam (Sod 3.375 gm/ Dextrose) 50 mls @ 100 mls/hr IVPB Q8H-IV [facility] PRN Reason: Protocol Last Admin: 06/03/17 09:34 Dose: 100 mls/hr Losartan Potassium (Cozaar -) 25 mg PO DAILY [facility] Multivitamins/Minerals (Theragran-M) 1 each PO DAILY [facility] Last Admin: 06/03/17 09:34 Dose: 1 each Oxycodone HCl (Roxicodone -) 5 mg PO Q4H PRN PRN Reason: PAIN LEVEL 6-10 Last Admin: 06/03/17 09:34 Dose: 5 mg Pantoprazole Sodium (Protonix -) 40 mg PO DAILY [facility] Last Admin: 06/03/17 09:35 Dose: 40 mg Tolterodine Tartrate (Detrol La -) 4 mg PO DAILY [facility] Last Admin: 06/03/17 09:36 Dose: 4 mg - Objective Vital Signs: Vital Signs Temperature 98.6 F 06/03/17 10:39 Pulse Rate 87 06/03/17 10:39 Respiratory Rate 18 06/03/17 10:39 Blood Pressure 127/68 06/03/17 10:39 O2 Sat by Pulse Oximetry (%) 97 06/03/17 09:00 Constitutional: Yes: No Distress Cardiovascular: Yes: Regular Rate and Rhythm Respiratory: Yes: Diminished Gastrointestinal: Yes: Normal Bowel Sounds, Soft. No: Tenderness Extremities: Yes: Other (left foot dressing in place) Edema: No Labs: CBC, BMP 06/03/17 06:30 06/03/17 06:30 INR, PTT INR 1.19 (0.82-1.09) H 06/01/17 16:05 Problem List - Problems (1) CAD (coronary artery disease) Code(s): I25.10 - ATHSCL HEART DISEASE OF [place] CORONARY ARTERY W/O ANG PCTRS Qualifiers: Coronary Disease-Associated Artery/Lesion type: [place] artery [place] vs. transplanted heart: [place] heart Associated angina: without angina Qualified Code(s): I25.10 - Atherosclerotic heart disease of [place] coronary artery without angina pectoris (2) Gangrene Code(s): I96 - GANGRENE, NOT ELSEWHERE CLASSIFIED (3) HTN (hypertension) Code(s): I10 - ESSENTIAL (PRIMARY) HYPERTENSION Qualifiers: Hypertension type: essential hypertension Qualified Code(s): I10 - Essential (primary) hypertension (4) Hx of CABG Code(s): Z95.1 - PRESENCE OF AORTOCORONARY BYPASS GRAFT (5) Hypercholesterolemia Code(s): E78.00 - PURE HYPERCHOLESTEROLEMIA, UNSPECIFIED (6) Leg wound, left Code(s): S81.802A - UNSPECIFIED OPEN WOUND, LEFT LOWER LEG, INITIAL ENCOUNTER Qualifiers: Encounter type: subsequent encounter Qualified Code(s): S81.802D - Unspecified open wound, left lower leg, subsequent encounter (7) Paroxysmal atrial fibrillation Code(s): I48.0 - PAROXYSMAL ATRIAL FIBRILLATION Assessment/Plan PLAN Continue with antibiotics Dry dressing daily Vascular and cardiology eval noted Echo results noted continue with meds pain control with oxycodone PRN cleared for angiogram tomorrow
--- NOTE | 2017-06-03 14:44 | PN ---
Progress Note, Physician History of Present Illness: stable leg pain vascular on case plan probably to put the stent - Current Medication List Current Medications: Active Medications Acetaminophen (Tylenol -) 650 mg PO Q4H PRN PRN Reason: PAIN LEVEL 1-5 Last Admin: 06/03/17 09:35 Dose: 650 mg Aspirin (Asa -) 81 mg PO DAILY [facility] Last Admin: 06/03/17 09:34 Dose: 81 mg Atorvastatin Calcium (Lipitor -) 20 mg PO HS [facility] Last Admin: 06/02/17 21:35 Dose: 20 mg Carvedilol (Coreg -) 3.125 mg PO BID [facility] Last Admin: 06/03/17 09:34 Dose: 3.125 mg Clopidogrel Bisulfate (Plavix -) 75 mg PO DAILY [facility] Last Admin: 06/03/17 09:34 Dose: 75 mg Docusate Sodium (Colace -) 100 mg PO BID PRN PRN Reason: CONSTIPATION Last Admin: 06/02/17 19:07 Dose: 100 mg Dronedarone (Multaq -) 400 mg PO BID [facility] Last Admin: 06/03/17 09:36 Dose: 400 mg Gabapentin (Neurontin -) 400 mg PO TID [facility] Last Admin: 06/03/17 14:00 Dose: 400 mg Heparin Sodium (Porcine) (Heparin -) 5,000 unit SQ BID [facility] Last Admin: 06/03/17 09:34 Dose: 5,000 unit Piperacillin Sod/Tazobactam (Sod 3.375 gm/ Dextrose) 50 mls @ 100 mls/hr IVPB Q8H-IV [facility] PRN Reason: Protocol Last Admin: 06/03/17 09:34 Dose: 100 mls/hr Dextrose/Sodium Chloride (D5-1/2ns -) 1,000 mls @ 83 mls/hr IV ASDIR [facility] Losartan Potassium (Cozaar -) 25 mg PO DAILY [facility] Multivitamins/Minerals (Theragran-M) 1 each PO DAILY [facility] Last Admin: 06/03/17 09:34 Dose: 1 each Oxycodone HCl (Roxicodone -) 5 mg PO Q4H PRN PRN Reason: PAIN LEVEL 6-10 Last Admin: 06/03/17 14:04 Dose: 5 mg Pantoprazole Sodium (Protonix -) 40 mg PO DAILY [facility] Last Admin: 06/03/17 09:35 Dose: 40 mg Tolterodine Tartrate (Detrol La -) 4 mg PO DAILY [facility] Last Admin: 06/03/17 09:36 Dose: 4 mg - Objective Vital Signs: Vital Signs Temperature 98.6 F 06/03/17 10:39 Pulse Rate 87 06/03/17 10:39 Respiratory Rate 18 06/03/17 10:39 Blood Pressure 127/68 06/03/17 10:39 O2 Sat by Pulse Oximetry (%) 97 06/03/17 09:00 Constitutional: Yes: No Distress, Calm Cardiovascular: Yes: Regular Rate and Rhythm Respiratory: Yes: Regular, CTA Bilaterally Gastrointestinal: Yes: Normal Bowel Sounds, Soft Musculoskeletal: Yes: WNL Extremities: Yes: Other Neurological: Yes: Alert, Oriented Psychiatric: Yes: Alert, Oriented Labs: CBC, BMP 06/03/17 06:30 06/03/17 06:30 INR, PTT INR 1.19 (0.82-1.09) H 06/01/17 16:05 Assessment/Plan Problem List - Problems (1) CAD (coronary artery disease) Code(s): I25.10 - ATHSCL HEART DISEASE OF [place] CORONARY ARTERY W/O ANG PCTRS (2) Gangrene Code(s): I96 - GANGRENE, NOT ELSEWHERE CLASSIFIED (3) HTN (hypertension) Code(s): I10 - ESSENTIAL (PRIMARY) HYPERTENSION Qualifiers: Hypertension type: essential hypertension Qualified Code(s): I10 - Essential (primary) hypertension (4) Hx of CABG Code(s): Z95.1 - PRESENCE OF AORTOCORONARY BYPASS GRAFT (5) Hypercholesterolemia Code(s): E78.00 - PURE HYPERCHOLESTEROLEMIA, UNSPECIFIED (6) Leg wound, left Code(s): S81.802A - UNSPECIFIED OPEN WOUND, LEFT LOWER LEG, INITIAL ENCOUNTER (7) Paroxysmal atrial fibrillation Code(s): I48.0 - PAROXYSMAL ATRIAL FIBRILLATION 8 gangrene of the left heel plan continue abx rest continue current mgt wound care rest as per primary team
--- NOTE | 2017-06-03 17:00 | PN ---
Progress Note (short form) - Note Progress Note: vascular Surgery For left lower ext angiogram/angioplasty moi. Normal Cr. Cleared by cardiology Jose Elias Hopkins DO
[2017-06-03] MEDS: ATORVASTATIN CA 20 MG TABLET (FP) PO SCH (21:53)
[2017-06-04] MEDS ORDERED: DEXTROSE 5%-0.45% SALINE 1,000 ML IV SCH (00:01)
[2017-06-04] MEDS ORDERED: DEXTROSE 5%-WATER - 50 ML IVPB ONE ×3 (01:41→19:13)
[2017-06-04] MEDS ORDERED: PIPERACILLIN/TAZOBACTAM 3.375 GM VIAL IVPB ONE ×3 (01:41→19:12)
[2017-06-04] MEDS: PIPERACILLIN/TAZOB 3.375 GM 3.375 GM in DEXTROSE 5%-WATER - 50 ML IVPB SCH ×3 (01:46→19:16)
[2017-06-04] MEDS: ACETAMINOPHEN 325 MG TABLET (FP) PO PRN ×4 (02:01→21:44)
[2017-06-04] MEDS: oxyCODONE HCL 5 MG TABLET PO PRN ×4 (02:02→21:41)
[2017-06-04] MEDS: GABAPENTIN 400 MG CAPSULE (FP) PO SCH ×2 (06:08→21:39)
[2017-06-04 08:23] LABS: BASO % 0.2 % (0-2.0); EOS % 2.6 % (0-4.5); HEMATOCRIT 30.9 % (32.4-45.2); LYMPH % 19.1 % (8-40); MCH 29.8 pg (25.7-33.7); MCHC 32.5 g/dl (32.0-36.0); MEAN CELL VOLUME 91.6 fl (80-96); MEAN PLT VOLUME 9.3 fl (7.5-11.1); MONO % 10.2 % (3.8-10.2); NEUT % 67.9 % (42.8-82.8); PLATELET COUNT 252 K/MM3 (134-434); RBC 3.37 M/mm3 (3.60-5.2); WHITE BLOOD COUNT 9.7 K/mm3 (4.0-10.0)
[2017-06-04 08:38] LABS: ANION GAP 5 (8-16); BLOOD UREA NITROGEN 10 mg/dL (7-18); CHLORIDE 107 mmol/L (98-107); CO2 28 mmol/L (21-32); CREATININE 0.8 mg/dL (0.55-1.02); GLUCOSE,RANDOM 99 mg/dL (74-106); POTASSIUM 3.9 mmol/L (3.5-5.1); SODIUM 140 mmol/L (136-145)
[2017-06-04] MEDS: CARVEDILOL 3.125 MG TABLET (FP) PO SCH ×2 (09:49→21:39)
[2017-06-04] MEDS ORDERED: LOSARTAN POTASSIUM 25 MG TABLET PO SCH (10:00)
--- NOTE | 2017-06-04 10:49 | PN ---
Progress Note, Physician History of Present Illness: Reports left foot ischemic discomfort. Awaiting LLE angiogram +/- [employer]. - Current Medication List Current Medications: Active Medications Acetaminophen (Tylenol -) 650 mg PO Q4H PRN PRN Reason: PAIN LEVEL 1-5 Last Admin: 06/04/17 09:49 Dose: 650 mg Aspirin (Asa -) 81 mg PO DAILY [facility] Last Admin: 06/03/17 09:34 Dose: 81 mg Atorvastatin Calcium (Lipitor -) 20 mg PO HS [facility] Last Admin: 06/03/17 21:53 Dose: 20 mg Carvedilol (Coreg -) 3.125 mg PO BID [facility] Last Admin: 06/04/17 09:49 Dose: 3.125 mg Clopidogrel Bisulfate (Plavix -) 75 mg PO DAILY [facility] Last Admin: 06/03/17 09:34 Dose: 75 mg Docusate Sodium (Colace -) 100 mg PO BID PRN PRN Reason: CONSTIPATION Last Admin: 06/02/17 19:07 Dose: 100 mg Dronedarone (Multaq -) 400 mg PO BID [facility] Last Admin: 06/03/17 21:56 Dose: 400 mg Gabapentin (Neurontin -) 400 mg PO TID [facility] Last Admin: 06/04/17 06:08 Dose: 400 mg Heparin Sodium (Porcine) (Heparin -) 5,000 unit SQ BID [facility] Last Admin: 06/03/17 21:55 Dose: 5,000 unit Piperacillin Sod/Tazobactam (Sod 3.375 gm/ Dextrose) 50 mls @ 100 mls/hr IVPB Q8H-IV [facility] PRN Reason: Protocol Last Admin: 06/04/17 09:50 Dose: 100 mls/hr Dextrose/Sodium Chloride (D5-1/2ns -) 1,000 mls @ 83 mls/hr IV ASDIR [facility] Last Admin: 06/04/17 01:45 Dose: 83 mls/hr Losartan Potassium (Cozaar -) 25 mg PO DAILY [facility] Last Admin: 06/04/17 09:49 Dose: 25 mg Multivitamins/Minerals (Theragran-M) 1 each PO DAILY [facility] Last Admin: 06/03/17 09:34 Dose: 1 each Oxycodone HCl (Roxicodone -) 5 mg PO Q4H PRN PRN Reason: PAIN LEVEL 6-10 Last Admin: 06/04/17 09:50 Dose: 5 mg Pantoprazole Sodium (Protonix -) 40 mg PO DAILY [facility] Last Admin: 06/03/17 09:35 Dose: 40 mg Tolterodine Tartrate (Detrol La -) 4 mg PO DAILY [facility] Last Admin: 06/03/17 09:36 Dose: 4 mg - Objective Vital Signs: Vital Signs Temperature 98.1 F 06/04/17 06:09 Pulse Rate 73 06/04/17 06:09 Respiratory Rate 18 06/04/17 06:09 Blood Pressure 146/67 06/04/17 06:09 O2 Sat by Pulse Oximetry (%) 97 06/03/17 21:00 Constitutional: Yes: No Distress, Calm, Thin Neck: Yes: Supple Cardiovascular: Yes: Regular Rate and Rhythm Respiratory: Yes: Regular, CTA Bilaterally Gastrointestinal: Yes: Normal Bowel Sounds, Soft Edema: No Labs: CBC, BMP 06/04/17 06:30 06/04/17 06:30 INR, PTT INR 1.19 (0.82-1.09) H 06/01/17 16:05 Problem List - Problems (1) Peripheral artery disease Code(s): I73.9 - PERIPHERAL VASCULAR DISEASE, UNSPECIFIED (2) CAD (coronary artery disease) Code(s): I25.10 - ATHSCL HEART DISEASE OF [place] CORONARY ARTERY W/O ANG PCTRS Qualifiers: Coronary Disease-Associated Artery/Lesion type: [place] artery [place] vs. transplanted heart: [place] heart Associated angina: without angina Qualified Code(s): I25.10 - Atherosclerotic heart disease of [place] coronary artery without angina pectoris (3) Gangrene Code(s): I96 - GANGRENE, NOT ELSEWHERE CLASSIFIED (4) Hx of CABG Code(s): Z95.1 - PRESENCE OF AORTOCORONARY BYPASS GRAFT (5) Hypercholesterolemia Code(s): E78.00 - PURE HYPERCHOLESTEROLEMIA, UNSPECIFIED (6) Leg wound, left Code(s): S81.802A - UNSPECIFIED OPEN WOUND, LEFT LOWER LEG, INITIAL ENCOUNTER Qualifiers: Encounter type: subsequent encounter Qualified Code(s): S81.802D - Unspecified open wound, left lower leg, subsequent encounter (7) Paroxysmal atrial fibrillation Code(s): I48.0 - PAROXYSMAL ATRIAL FIBRILLATION (8) S/P coronary artery stent placement Code(s): Z95.5 - PRESENCE OF CORONARY ANGIOPLASTY IMPLANT AND GRAFT (9) HTN (hypertension) Code(s): I10 - ESSENTIAL (PRIMARY) HYPERTENSION Qualifiers: Hypertension type: essential hypertension Qualified Code(s): I10 - Essential (primary) hypertension Assessment/Plan 06/02/2017 Echo: Normal biventricular size and fxn with mild TR 1. Pre-operative cardiovascular evaluation 2. Coronary artery disease post CABG, PCI/stent, angina pectoris 3. Paroxysmal atrial fibrillation currently in sinus rhythm on Warfarin therapy (currently INR reversed) [id number] score of at least 7 4. Hypertension 5. Hypercholesterolemia 6. Elevated Hemoglobin A1C with possible diabetic neuropathy - not on diabetes medication 7. PAD post right lower extremity bypass currently with left SFA occlusion and left 2nd toe gangrene PLAN: 1. Continue Carvedilol 3.125 bid, Lipitor 20 qhs 2. Continue losartan 25 qd, d/c Bumex,and f/u renal function and electrolytes 3. Continue ASA 81 qd and Plavix 75 qd for now, would d/c ASA once INR is therapeutic 4. Currently on Multaq 400 bid (started by Dr. Ray) as patient does not exhibit any signs of heart failure 5. If patient were to undergo surgical intervention, she will need further cardiac work up including nuclear myocardial perfusion imaging study ( pharmacological) for risk stratification. For an LLE angiography and possible angioplasty, it would be acceptable to proceed as currently she does not exhibit any ischemic symptoms, decompensated congestive heart failure or malignant arrhythmias 6. Eventually will need to restart Warfarin therapy with INR between 2-3, DVT and GI prophylaxis 7. Empiric abx course
--- NOTE | 2017-06-04 12:36 | PN ---
Progress Note, Physician Chief Complaint: has pain in left leg - Current Medication List Current Medications: Active Medications Acetaminophen (Tylenol -) 650 mg PO Q4H PRN PRN Reason: PAIN LEVEL 1-5 Last Admin: 06/04/17 09:49 Dose: 650 mg Aspirin (Asa -) 81 mg PO DAILY [facility] Last Admin: 06/03/17 09:34 Dose: 81 mg Atorvastatin Calcium (Lipitor -) 20 mg PO HS [facility] Last Admin: 06/03/17 21:53 Dose: 20 mg Carvedilol (Coreg -) 3.125 mg PO BID [facility] Last Admin: 06/04/17 09:49 Dose: 3.125 mg Clopidogrel Bisulfate (Plavix -) 75 mg PO DAILY [facility] Last Admin: 06/03/17 09:34 Dose: 75 mg Docusate Sodium (Colace -) 100 mg PO BID PRN PRN Reason: CONSTIPATION Last Admin: 06/02/17 19:07 Dose: 100 mg Dronedarone (Multaq -) 400 mg PO BID [facility] Last Admin: 06/03/17 21:56 Dose: 400 mg Gabapentin (Neurontin -) 400 mg PO TID [facility] Last Admin: 06/04/17 06:08 Dose: 400 mg Heparin Sodium (Porcine) (Heparin -) 5,000 unit SQ BID [facility] Last Admin: 06/03/17 21:55 Dose: 5,000 unit Piperacillin Sod/Tazobactam (Sod 3.375 gm/ Dextrose) 50 mls @ 100 mls/hr IVPB Q8H-IV [facility] PRN Reason: Protocol Last Admin: 06/04/17 09:50 Dose: 100 mls/hr Dextrose/Sodium Chloride (D5-1/2ns -) 1,000 mls @ 83 mls/hr IV ASDIR [facility] Last Admin: 06/04/17 01:45 Dose: 83 mls/hr Losartan Potassium (Cozaar -) 25 mg PO DAILY [facility] Last Admin: 06/04/17 09:49 Dose: 25 mg Multivitamins/Minerals (Theragran-M) 1 each PO DAILY [facility] Last Admin: 06/03/17 09:34 Dose: 1 each Oxycodone HCl (Roxicodone -) 5 mg PO Q4H PRN PRN Reason: PAIN LEVEL 6-10 Last Admin: 06/04/17 09:50 Dose: 5 mg Pantoprazole Sodium (Protonix -) 40 mg PO DAILY [facility] Last Admin: 06/03/17 09:35 Dose: 40 mg Tolterodine Tartrate (Detrol La -) 4 mg PO DAILY [facility] Last Admin: 06/03/17 09:36 Dose: 4 mg - Objective Vital Signs: Vital Signs Temperature 98.1 F 06/04/17 06:09 Pulse Rate 73 06/04/17 06:09 Respiratory Rate 18 06/04/17 06:09 Blood Pressure 146/67 06/04/17 06:09 O2 Sat by Pulse Oximetry (%) 97 06/03/17 21:00 Constitutional: Yes: No Distress Cardiovascular: Yes: Regular Rate and Rhythm Respiratory: Yes: Diminished Gastrointestinal: Yes: Normal Bowel Sounds, Soft. No: Tenderness Edema: No Labs: CBC, BMP 06/04/17 06:30 06/04/17 06:30 INR, PTT INR 1.19 (0.82-1.09) H 06/01/17 16:05 Problem List - Problems (1) CAD (coronary artery disease) Code(s): I25.10 - ATHSCL HEART DISEASE OF [place] CORONARY ARTERY W/O ANG PCTRS Qualifiers: Coronary Disease-Associated Artery/Lesion type: [place] artery [place] vs. transplanted heart: [place] heart Associated angina: without angina Qualified Code(s): I25.10 - Atherosclerotic heart disease of [place] coronary artery without angina pectoris (2) Gangrene Code(s): I96 - GANGRENE, NOT ELSEWHERE CLASSIFIED (3) HTN (hypertension) Code(s): I10 - ESSENTIAL (PRIMARY) HYPERTENSION Qualifiers: Hypertension type: essential hypertension Qualified Code(s): I10 - Essential (primary) hypertension (4) Hx of CABG Code(s): Z95.1 - PRESENCE OF AORTOCORONARY BYPASS GRAFT (5) Hypercholesterolemia Code(s): E78.00 - PURE HYPERCHOLESTEROLEMIA, UNSPECIFIED (6) Leg wound, left Code(s): S81.802A - UNSPECIFIED OPEN WOUND, LEFT LOWER LEG, INITIAL ENCOUNTER Qualifiers: Encounter type: subsequent encounter Qualified Code(s): S81.802D - Unspecified open wound, left lower leg, subsequent encounter (7) Paroxysmal atrial fibrillation Code(s): I48.0 - PAROXYSMAL ATRIAL FIBRILLATION Assessment/Plan PLAN Continue with antibiotics per ID Dry dressing daily for angiogram
[2017-06-04] MEDS ORDERED: HEPARIN NA (PORCINE) 5,000 UNITS/ML 1ML VIAL ONE (14:24)
--- NOTE | 2017-06-04 14:31 | PN ---
Progress Note, Physician History of Present Illness: stable leg pain plan for stent - Current Medication List Current Medications: Active Medications Acetaminophen (Tylenol -) 650 mg PO Q4H PRN PRN Reason: PAIN LEVEL 1-5 Last Admin: 06/04/17 09:49 Dose: 650 mg Aspirin (Asa -) 81 mg PO DAILY [facility] Last Admin: 06/03/17 09:34 Dose: 81 mg Atorvastatin Calcium (Lipitor -) 20 mg PO HS [facility] Last Admin: 06/03/17 21:53 Dose: 20 mg Carvedilol (Coreg -) 3.125 mg PO BID [facility] Last Admin: 06/04/17 09:49 Dose: 3.125 mg Clopidogrel Bisulfate (Plavix -) 75 mg PO DAILY [facility] Last Admin: 06/03/17 09:34 Dose: 75 mg Docusate Sodium (Colace -) 100 mg PO BID PRN PRN Reason: CONSTIPATION Last Admin: 06/02/17 19:07 Dose: 100 mg Dronedarone (Multaq -) 400 mg PO BID [facility] Last Admin: 06/03/17 21:56 Dose: 400 mg Gabapentin (Neurontin -) 400 mg PO TID [facility] Last Admin: 06/04/17 06:08 Dose: 400 mg Heparin Sodium (Porcine) (Heparin -) 5,000 unit SQ BID [facility] Last Admin: 06/03/17 21:55 Dose: 5,000 unit Piperacillin Sod/Tazobactam (Sod 3.375 gm/ Dextrose) 50 mls @ 100 mls/hr IVPB Q8H-IV [facility] PRN Reason: Protocol Last Admin: 06/04/17 09:50 Dose: 100 mls/hr Dextrose/Sodium Chloride (D5-1/2ns -) 1,000 mls @ 83 mls/hr IV ASDIR [facility] Last Admin: 06/04/17 01:45 Dose: 83 mls/hr Losartan Potassium (Cozaar -) 25 mg PO DAILY [facility] Last Admin: 06/04/17 09:49 Dose: 25 mg Multivitamins/Minerals (Theragran-M) 1 each PO DAILY [facility] Last Admin: 06/03/17 09:34 Dose: 1 each Oxycodone HCl (Roxicodone -) 5 mg PO Q4H PRN PRN Reason: PAIN LEVEL 6-10 Last Admin: 06/04/17 09:50 Dose: 5 mg Pantoprazole Sodium (Protonix -) 40 mg PO DAILY [facility] Last Admin: 06/03/17 09:35 Dose: 40 mg Tolterodine Tartrate (Detrol La -) 4 mg PO DAILY [facility] Last Admin: 06/03/17 09:36 Dose: 4 mg - Objective Vital Signs: Vital Signs Temperature 98 F 06/04/17 10:00 Pulse Rate 74 06/04/17 10:00 Respiratory Rate 18 06/04/17 10:00 Blood Pressure 138/65 06/04/17 10:00 O2 Sat by Pulse Oximetry (%) 97 06/04/17 09:00 Constitutional: Yes: Calm, Mild Distress Cardiovascular: Yes: Regular Rate and Rhythm Respiratory: Yes: Regular, CTA Bilaterally Gastrointestinal: Yes: Normal Bowel Sounds, Soft Musculoskeletal: Yes: WNL Extremities: Yes: Other Neurological: Yes: Alert, Oriented Psychiatric: Yes: Alert, Oriented Labs: CBC, BMP 06/04/17 06:30 06/04/17 06:30 INR, PTT INR 1.19 (0.82-1.09) H 06/01/17 16:05 Assessment/Plan Problem List - Problems (1) CAD (coronary artery disease) Code(s): I25.10 - ATHSCL HEART DISEASE OF [place] CORONARY ARTERY W/O ANG PCTRS (2) Gangrene Code(s): I96 - GANGR[place], NOT ELSEWHERE CLASSIFIED (3) HTN (hypertension) Code(s): I10 - ESSENTIAL (PRIMARY) HYPERTENSION Qualifiers: Hypertension type: essential hypertension Qualified Code(s): I10 - Essential (primary) hypertension (4) Hx of CABG Code(s): Z95.1 - PRESENCE OF AORTOCORONARY BYPASS GRAFT (5) Hypercholesterolemia Code(s): E78.00 - PURE HYPERCHOLESTEROLEMIA, UNSPECIFIED (6) Leg wound, left Code(s): S81.802A - UNSPECIFIED OPEN WOUND, LEFT LOWER LEG, INITIAL ENCOUNTER (7) Paroxysmal atrial fibrillation Code(s): I48.0 - PAROXYSMAL ATRIAL FIBRILLATION 8 gangrene of the left heel plan continue abx rest continue current mgt wound care rest as per primary team awaiting for vascular plan
[2017-06-04] MEDS ORDERED: MIDAZOLAM HCL 2 MG/2 ML SINGLE DOSE VIAL ONE (14:46)
[2017-06-04] MEDS ORDERED: PROPOFOL 20 ML ONE ×2 (15:02→15:40)
[2017-06-04] MEDS ORDERED: SUCCINYLCHOLINE CHLORIDE 200 MG/10 ML VIAL ONE (15:10)
[2017-06-04] MEDS ORDERED: ceFAZolin SODIUM 1 GM VIAL IVPB ONE (15:16)
[2017-06-04] MEDS ORDERED: ceFAZolin SODIUM 1 GM VIAL ONE (15:17)
[2017-06-04] MEDS ORDERED: LIDOCAINE HCL 1%, 10 MG/ML (20ML VIAL) PNB ONE (15:20)
[2017-06-04] MEDS ORDERED: ePHEDrine SULFATE 50 MG/1 ML AMPULE ONE (15:55)
--- NOTE | 2017-06-04 16:03 | PN ---
Progress Note (short form) - Note Progress Note: Vascular surgery S/P LLE angiogram. Pt has aortoiliac disease. Very difficult to go contralateral. Pt has bypass in right leg. LLE angiogram showed SFA disease with Distal sfa occlusion. Pt has 3 vessel runoff to foot. Did angiogram from ipsilateral approach. Considering that pt has dry ulcer on second toe, with three vessel runoff, did not intervene to fix distal sfa. Risks outweighed the benefits. Bacitracin to left second toe, conservative care. Pt has significant Aortic disease on aortogram, with distal aortic occlusion. Pt is a good candidate for HBO. Jose Elias stacy DO
--- NOTE | 2017-06-04 16:05 | OP ---
Operative Note - Note: Operative Date: 06/04/17 Pre-Operative Diagnosis: Left second toe ulcer Operation: aortogram, LLE angiogram Post-Operative Diagnosis: Same as Pre-op Surgeon: Jose Elias Hopkins Anesthesia: General Estimated Blood Loss (mls): 20 Operative Report Dictated: Yes
[2017-06-04] MEDS ORDERED: ONDANSETRON 4 MG/2 ML VIAL IVPUSH PRN (16:23)
[2017-06-04] MEDS ORDERED: DOCUSATE SODIUM 100 MG CAPSULE (FP) PO PRN (17:00)
[2017-06-04] MEDS: DEXTROSE 5%-0.45% SALINE 1,000 ML IV SCH (17:31)
[2017-06-04] MEDS ORDERED: PT OWN MED DRAWER 7, Y5N ONE (21:23)
[2017-06-04] MEDS: ATORVASTATIN CA 20 MG TABLET (FP) PO SCH (21:39)
[2017-06-04] MEDS: HEPARIN NA (PORCINE) 5,000 UNITS/ML 1ML VIAL SQ SCH (21:40)
[2017-06-04] MEDS: DRONEDARONE HCL 400 MG TAB (FP) PO SCH (21:40)
[2017-06-04] MEDS: LACTATED RINGERS SOLUTION 1,000 ML IV SCH (21:48)
[2017-06-05] MEDS ORDERED: PIPERACILLIN/TAZOBACTAM 3.375 GM VIAL IVPB ONE ×3 (02:24→17:34)
[2017-06-05] MEDS ORDERED: DEXTROSE 5%-WATER - 50 ML IVPB ONE ×3 (02:24→17:34)
[2017-06-05] MEDS: PIPERACILLIN/TAZOB 3.375 GM 3.375 GM in DEXTROSE 5%-WATER - 50 ML IVPB SCH ×3 (02:39→17:40)
[2017-06-05] MEDS: oxyCODONE HCL 5 MG TABLET PO PRN ×3 (06:17→21:23)
[2017-06-05] MEDS: GABAPENTIN 400 MG CAPSULE (FP) PO SCH ×4 (06:17→22:12)
[2017-06-05] MEDS: ACETAMINOPHEN 325 MG TABLET (FP) PO PRN ×3 (06:18→21:23)
--- NOTE | 2017-06-05 07:45 | PN ---
Progress Note (short form) - Note Progress Note: POD #1 s/p aortogram, LLE angiogram (ipsilateral approach) No acute events per RN notes since surgery. Resting in position of comfort without complaint. Has severe aortoiliac disease. Has RLE bypass. LLE angio showed SFA disease with Distal SFA occlusion --> has 3 vessel runoff to foot. Bacitracin to left second toe Cont conservative care. Good candidate for HBO. Problem List - Problems (1) Leg wound, left Code(s): S81.802A - UNSPECIFIED OPEN WOUND, LEFT LOWER LEG, INITIAL ENCOUNTER Qualifiers: Encounter type: subsequent encounter Qualified Code(s): S81.802D - Unspecified open wound, left lower leg, subsequent encounter
[2017-06-05] MEDS ORDERED: PT OWN MED DRAWER 7, Y5N ONE (10:05)
[2017-06-05] MEDS: CARVEDILOL 3.125 MG TABLET (FP) PO SCH ×2 (10:08→21:22)
[2017-06-05] MEDS: MULTIVITAMINS THER W-MINERALS COMBO TABLET (FP) PO SCH ×2 (10:08→22:12)
[2017-06-05] MEDS: LOSARTAN POTASSIUM 25 MG TABLET PO SCH (10:08)
[2017-06-05] MEDS: TOLTERODINE TARTRATE LA 4 MG CAP.SR.24H (FP) PO SCH ×2 (10:08→22:11)
[2017-06-05] MEDS: ASPIRIN 81 MG CHEWABLE TABLETS PO SCH ×2 (10:08→22:11)
[2017-06-05] MEDS: PANTOPRAZOLE 40 MG TABLET (FP) PO SCH ×2 (10:08→22:12)
[2017-06-05] MEDS: CLOPIDOGREL BISULFATE 75 MG TABLET (FP) PO SCH ×2 (10:09→22:12)
[2017-06-05] MEDS: HEPARIN NA (PORCINE) 5,000 UNITS/ML 1ML VIAL SQ SCH ×2 (10:09→21:22)
[2017-06-05] MEDS: DRONEDARONE HCL 400 MG TAB (FP) PO SCH ×3 (10:09→22:11)
--- NOTE | 2017-06-05 11:41 | PN ---
Progress Note, Physician History of Present Illness: POD #1 s/p aortogram, LLE angiogram (ipsilateral approach), showing severe aortoiliac disease, RLE bypass, LLE angio showed SFA disease with Distal SFA occlusion --> has 3 vessel runoff to foot. Plan for HBOx. - Current Medication List Current Medications: Active Medications Acetaminophen (Tylenol -) 650 mg PO Q4H PRN PRN Reason: PAIN LEVEL 1-5 Last Admin: 06/05/17 06:18 Dose: 650 mg Aspirin (Asa -) 81 mg PO DAILY [facility] Last Admin: 06/05/17 10:08 Dose: 81 mg Atorvastatin Calcium (Lipitor -) 20 mg PO HS [facility] Last Admin: 06/04/17 21:39 Dose: 20 mg Carvedilol (Coreg -) 3.125 mg PO BID [facility] Last Admin: 06/05/17 10:08 Dose: 3.125 mg Clopidogrel Bisulfate (Plavix -) 75 mg PO DAILY [facility] Last Admin: 06/05/17 10:09 Dose: 75 mg Docusate Sodium (Colace -) 100 mg PO BID PRN PRN Reason: CONSTIPATION Last Admin: 06/04/17 21:39 Dose: 100 mg Dronedarone (Multaq -) 400 mg PO BID [facility] Last Admin: 06/05/17 10:09 Dose: 400 mg Gabapentin (Neurontin -) 400 mg PO TID [facility] Last Admin: 06/05/17 06:17 Dose: 400 mg Heparin Sodium (Porcine) (Heparin -) 5,000 unit SQ BID [facility] Last Admin: 06/05/17 10:09 Dose: 5,000 unit Lactated Ringer's (Lactated Ringers Solution) 1,000 mls @ 125 mls/hr IV ASDIR [facility] Last Admin: 06/04/17 21:48 Dose: 125 mls/hr Dextrose/Sodium Chloride (D5-1/2ns -) 1,000 mls @ 83 mls/hr IV ASDIR [facility] Last Admin: 06/04/17 17:31 Dose: 100 mls Piperacillin Sod/Tazobactam (Sod 3.375 gm/ Dextrose) 50 mls @ 100 mls/hr IVPB Q8H-IV [facility] PRN Reason: Protocol Last Admin: 06/05/17 10:07 Dose: 100 mls/hr Losartan Potassium (Cozaar -) 25 mg PO DAILY [facility] Last Admin: 06/05/17 10:08 Dose: 25 mg Multivitamins/Minerals (Theragran-M) 1 each PO DAILY [facility] Last Admin: 06/05/17 10:08 Dose: 1 each Ondansetron HCl (Zofran Injection) 4 mg IVPUSH Q6H PRN PRN Reason: NAUSEA AND/OR VOMITING Oxycodone HCl (Roxicodone -) 5 mg PO Q4H PRN PRN Reason: PAIN LEVEL 6-10 Last Admin: 06/05/17 06:17 Dose: 5 mg Pantoprazole Sodium (Protonix -) 40 mg PO DAILY [facility] Last Admin: 06/05/17 10:08 Dose: 40 mg Tolterodine Tartrate (Detrol La -) 4 mg PO DAILY [facility] Last Admin: 06/05/17 10:08 Dose: 4 mg - Objective Vital Signs: Vital Signs Temperature 98 F 06/05/17 06:53 Pulse Rate 82 06/05/17 06:53 Respiratory Rate 20 06/05/17 06:53 Blood Pressure 119/66 06/05/17 06:53 O2 Sat by Pulse Oximetry (%) 94 L 06/04/17 17:40 Constitutional: Yes: No Distress, Calm, Thin Neck: Yes: Supple Cardiovascular: Yes: Regular Rate and Rhythm Respiratory: Yes: Regular, CTA Bilaterally Gastrointestinal: Yes: Normal Bowel Sounds, Soft Edema: No Wound/Incision: Yes: Dressing Dry and Intact Labs: CBC, BMP 06/04/17 06:30 06/04/17 06:30 INR, PTT INR 1.19 (0.82-1.09) H 06/01/17 16:05 Problem List - Problems (1) Peripheral artery disease Code(s): I73.9 - PERIPHERAL VASCULAR DISEASE, UNSPECIFIED (2) CAD (coronary artery disease) Code(s): I25.10 - ATHSCL HEART DISEASE OF [place] CORONARY ARTERY W/O ANG PCTRS Qualifiers: Coronary Disease-Associated Artery/Lesion type: [place] artery [place] vs. transplanted heart: [place] heart Associated angina: without angina Qualified Code(s): I25.10 - Atherosclerotic heart disease of [place] coronary artery without angina pectoris (3) Gangrene Code(s): I96 - GANGRENE, NOT ELSEWHERE CLASSIFIED (4) Hx of CABG Code(s): Z95.1 - PRESENCE OF AORTOCORONARY BYPASS GRAFT (5) Hypercholesterolemia Code(s): E78.00 - PURE HYPERCHOLESTEROLEMIA, UNSPECIFIED (6) Leg wound, left Code(s): S81.802A - UNSPECIFIED OPEN WOUND, LEFT LOWER LEG, INITIAL ENCOUNTER Qualifiers: Encounter type: subsequent encounter Qualified Code(s): S81.802D - Unspecified open wound, left lower leg, subsequent encounter (7) Paroxysmal atrial fibrillation Code(s): I48.0 - PAROXYSMAL ATRIAL FIBRILLATION (8) S/P coronary artery stent placement Code(s): Z95.5 - PRESENCE OF CORONARY ANGIOPLASTY IMPLANT AND GRAFT (9) HTN (hypertension) Code(s): I10 - ESSENTIAL (PRIMARY) HYPERTENSION Qualifiers: Hypertension type: essential hypertension Qualified Code(s): I10 - Essential (primary) hypertension Assessment/Plan 06/02/2017 Echo: Normal biventricular size and fxn with mild TR 1. PAD s/p RLE bypass planned for HBOx LLE 2. Coronary artery disease post CABG, PCI/stent, angina pectoris 3. Paroxysmal atrial fibrillation currently in sinus rhythm on Warfarin therapy (currently INR reversed) [id number] score of at least 7 4. Hypertension 5. Hypercholesterolemia 6. Elevated Hemoglobin A1C with possible diabetic neuropathy - not on diabetes medication 7. PAD post right lower extremity bypass currently with left SFA occlusion and left 2nd toe gangrene PLAN: 1. Continue Carvedilol 3.125 bid, Lipitor 20 qhs 2. Continue losartan 25 qd, with f/u renal function and electrolytes 3. Continue ASA 81 qd and Plavix 75 qd for now, would d/c DAPT once INR is therapeutic as CAD is stable 4. Currently on Multaq 400 bid (started by Dr. Ray) as patient does not exhibit any signs of heart failure 5. Restarted Warfarin therapy with INR between 2-3, DVT and GI prophylaxis 6. Empiric abx course, analgesia as needed, HBOx
--- NOTE | 2017-06-05 11:43 | PN ---
Progress Note (short form) - Note Progress Note: Anesthesia Post op Pt seen and examined S:alert and awake O: Vital Signs Temperature 98 F 06/05/17 06:53 Pulse Rate 82 06/05/17 06:53 Respiratory Rate 20 06/05/17 06:53 Blood Pressure 119/66 06/05/17 06:53 O2 Sat by Pulse Oximetry (%) 94 L 06/04/17 17:40 CBC, BMP 06/04/17 06:30 06/04/17 06:30 A/P; Current Active Problems CAD (coronary artery disease) (Acute) Elevated hemoglobin A1c (Acute) Gangrene (Acute) HTN (hypertension) (Acute) Hx of CABG (Acute) Hypercholesterolemia (Acute) Leg wound, left (Acute) Paroxysmal atrial fibrillation (Acute) Peripheral artery disease (Acute) S/P coronary artery stent placement (Acute) s/p LLE angiogram Doing well post op Chang Pulido
--- NOTE | 2017-06-05 14:19 | PN ---
Progress Note, Physician History of Present Illness: patient went for procedure according to the patient the procedure failed patient advised hyperbaric - Current Medication List Current Medications: Active Medications Acetaminophen (Tylenol -) 650 mg PO Q4H PRN PRN Reason: PAIN LEVEL 1-5 Last Admin: 06/05/17 06:18 Dose: 650 mg Aspirin (Asa -) 81 mg PO DAILY [facility] Last Admin: 06/05/17 10:08 Dose: 81 mg Atorvastatin Calcium (Lipitor -) 20 mg PO HS [facility] Last Admin: 06/04/17 21:39 Dose: 20 mg Carvedilol (Coreg -) 3.125 mg PO BID [facility] Last Admin: 06/05/17 10:08 Dose: 3.125 mg Clopidogrel Bisulfate (Plavix -) 75 mg PO DAILY [facility] Last Admin: 06/05/17 10:09 Dose: 75 mg Docusate Sodium (Colace -) 100 mg PO BID PRN PRN Reason: CONSTIPATION Last Admin: 06/04/17 21:39 Dose: 100 mg Dronedarone (Multaq -) 400 mg PO BID [facility] Last Admin: 06/05/17 10:09 Dose: 400 mg Gabapentin (Neurontin -) 400 mg PO TID [facility] Last Admin: 06/05/17 13:24 Dose: 400 mg Heparin Sodium (Porcine) (Heparin -) 5,000 unit SQ BID [facility] Last Admin: 06/05/17 10:09 Dose: 5,000 unit Lactated Ringer's (Lactated Ringers Solution) 1,000 mls @ 125 mls/hr IV ASDIR [facility] Last Admin: 06/04/17 21:48 Dose: 125 mls/hr Dextrose/Sodium Chloride (D5-1/2ns -) 1,000 mls @ 83 mls/hr IV ASDIR [facility] Last Admin: 06/04/17 17:31 Dose: 100 mls Piperacillin Sod/Tazobactam (Sod 3.375 gm/ Dextrose) 50 mls @ 100 mls/hr IVPB Q8H-IV [facility] PRN Reason: Protocol Last Admin: 06/05/17 10:07 Dose: 100 mls/hr Losartan Potassium (Cozaar -) 25 mg PO DAILY [facility] Last Admin: 06/05/17 10:08 Dose: 25 mg Multivitamins/Minerals (Theragran-M) 1 each PO DAILY [facility] Last Admin: 06/05/17 10:08 Dose: 1 each Ondansetron HCl (Zofran Injection) 4 mg IVPUSH Q6H PRN PRN Reason: NAUSEA AND/OR VOMITING Oxycodone HCl (Roxicodone -) 5 mg PO Q4H PRN PRN Reason: PAIN LEVEL 6-10 Last Admin: 06/05/17 06:17 Dose: 5 mg Pantoprazole Sodium (Protonix -) 40 mg PO DAILY [facility] Last Admin: 06/05/17 10:08 Dose: 40 mg Tolterodine Tartrate (Detrol La -) 4 mg PO DAILY [facility] Last Admin: 06/05/17 10:08 Dose: 4 mg Warfarin Sodium (Coumadin -) 5 mg PO DAILY@1800 [facility] - Objective Vital Signs: Vital Signs Temperature 98 F 06/05/17 06:53 Pulse Rate 82 06/05/17 06:53 Respiratory Rate 20 06/05/17 06:53 Blood Pressure 119/66 06/05/17 06:53 O2 Sat by Pulse Oximetry (%) 94 L 06/04/17 17:40 Constitutional: Yes: No Distress, Calm Cardiovascular: Yes: Regular Rate and Rhythm Respiratory: Yes: Regular, CTA Bilaterally Gastrointestinal: Yes: Normal Bowel Sounds, Soft Musculoskeletal: Yes: WNL Extremities: Yes: Other Wound/Incision: Yes: Dressing Dry and Intact Neurological: Yes: Alert, Oriented Psychiatric: Yes: Alert, Oriented Labs: CBC, BMP 06/04/17 06:30 06/04/17 06:30 INR, PTT INR 1.19 (0.82-1.09) H 06/01/17 16:05 Assessment/Plan Problem List - Problems (1) CAD (coronary artery disease) Code(s): I25.10 - ATHSCL HEART DISEASE OF [place] CORONARY ARTERY W/O ANG PCTRS (2) Gangrene Code(s): I96 - GANGRENE, NOT ELSEWHERE CLASSIFIED (3) HTN (hypertension) Code(s): I10 - ESSENTIAL (PRIMARY) HYPERTENSION Qualifiers: Hypertension type: essential hypertension Qualified Code(s): I10 - Essential (primary) hypertension (4) Hx of CABG Code(s): Z95.1 - PRESENCE OF AORTOCORONARY BYPASS GRAFT (5) Hypercholesterolemia Code(s): E78.00 - PURE HYPERCHOLESTEROLEMIA, UNSPECIFIED (6) Leg wound, left Code(s): S81.802A - UNSPECIFIED OPEN WOUND, LEFT LOWER LEG, INITIAL ENCOUNTER (7) Paroxysmal atrial fibrillation Code(s): I48.0 - PAROXYSMAL ATRIAL FIBRILLATION 8 gangrene of the left heel plan continue abx will change abx to oral tomorrow rest as per vascular patient stable
--- NOTE | 2017-06-05 15:01 | PN ---
Progress Note, Physician Chief Complaint: Pt examined s/p angiogram - Current Medication List Current Medications: Active Medications Acetaminophen (Tylenol -) 650 mg PO Q4H PRN PRN Reason: PAIN LEVEL 1-5 Last Admin: 06/05/17 06:18 Dose: 650 mg Aspirin (Asa -) 81 mg PO DAILY [facility] Last Admin: 06/05/17 10:08 Dose: 81 mg Atorvastatin Calcium (Lipitor -) 20 mg PO HS [facility] Last Admin: 06/04/17 21:39 Dose: 20 mg Carvedilol (Coreg -) 3.125 mg PO BID [facility] Last Admin: 06/05/17 10:08 Dose: 3.125 mg Clopidogrel Bisulfate (Plavix -) 75 mg PO DAILY [facility] Last Admin: 06/05/17 10:09 Dose: 75 mg Docusate Sodium (Colace -) 100 mg PO BID PRN PRN Reason: CONSTIPATION Last Admin: 06/04/17 21:39 Dose: 100 mg Dronedarone (Multaq -) 400 mg PO BID [facility] Last Admin: 06/05/17 10:09 Dose: 400 mg Gabapentin (Neurontin -) 400 mg PO TID [facility] Last Admin: 06/05/17 13:24 Dose: 400 mg Heparin Sodium (Porcine) (Heparin -) 5,000 unit SQ BID [facility] Last Admin: 06/05/17 10:09 Dose: 5,000 unit Lactated Ringer's (Lactated Ringers Solution) 1,000 mls @ 125 mls/hr IV ASDIR [facility] Last Admin: 06/04/17 21:48 Dose: 125 mls/hr Dextrose/Sodium Chloride (D5-1/2ns -) 1,000 mls @ 83 mls/hr IV ASDIR [facility] Last Admin: 06/04/17 17:31 Dose: 100 mls Piperacillin Sod/Tazobactam (Sod 3.375 gm/ Dextrose) 50 mls @ 100 mls/hr IVPB Q8H-IV [facility] PRN Reason: Protocol Last Admin: 06/05/17 10:07 Dose: 100 mls/hr Losartan Potassium (Cozaar -) 25 mg PO DAILY [facility] Last Admin: 06/05/17 10:08 Dose: 25 mg Multivitamins/Minerals (Theragran-M) 1 each PO DAILY [facility] Last Admin: 06/05/17 10:08 Dose: 1 each Ondansetron HCl (Zofran Injection) 4 mg IVPUSH Q6H PRN PRN Reason: NAUSEA AND/OR VOMITING Oxycodone HCl (Roxicodone -) 5 mg PO Q4H PRN PRN Reason: PAIN LEVEL 6-10 Last Admin: 06/05/17 06:17 Dose: 5 mg Pantoprazole Sodium (Protonix -) 40 mg PO DAILY [facility] Last Admin: 06/05/17 10:08 Dose: 40 mg Tolterodine Tartrate (Detrol La -) 4 mg PO DAILY [facility] Last Admin: 06/05/17 10:08 Dose: 4 mg Warfarin Sodium (Coumadin -) 5 mg PO DAILY@1800 [facility] - Objective Vital Signs: Vital Signs Temperature 99.3 F 06/05/17 14:40 Pulse Rate 82 06/05/17 14:40 Respiratory Rate 18 06/05/17 14:40 Blood Pressure 136/59 06/05/17 14:40 O2 Sat by Pulse Oximetry (%) 94 L 06/04/17 17:40 Constitutional: Yes: No Distress Cardiovascular: Yes: Regular Rate and Rhythm Respiratory: Yes: CTA Bilaterally Gastrointestinal: Yes: Normal Bowel Sounds, Soft. No: Distention, Tenderness Extremities: Yes: Other (left leg -- hyperpigmented) Edema: No Labs: CBC, BMP 06/04/17 06:30 06/04/17 06:30 INR, PTT INR 1.19 (0.82-1.09) H 06/01/17 16:05 Problem List - Problems (1) CAD (coronary artery disease) Code(s): I25.10 - ATHSCL HEART DISEASE OF [place] CORONARY ARTERY W/O ANG PCTRS Qualifiers: Coronary Disease-Associated Artery/Lesion type: [place] artery [place] vs. transplanted heart: [place] heart Associated angina: without angina Qualified Code(s): I25.10 - Atherosclerotic heart disease of [place] coronary artery without angina pectoris (2) Gangrene Code(s): I96 - GANGRENE, NOT ELSEWHERE CLASSIFIED (3) HTN (hypertension) Code(s): I10 - ESSENTIAL (PRIMARY) HYPERTENSION Qualifiers: Hypertension type: essential hypertension Qualified Code(s): I10 - Essential (primary) hypertension (4) Hx of CABG Code(s): Z95.1 - PRESENCE OF AORTOCORONARY BYPASS GRAFT (5) Hypercholesterolemia Code(s): E78.00 - PURE HYPERCHOLESTEROLEMIA, UNSPECIFIED (6) Leg wound, left Code(s): S81.802A - UNSPECIFIED OPEN WOUND, LEFT LOWER LEG, INITIAL ENCOUNTER Qualifiers: Encounter type: subsequent encounter Qualified Code(s): S81.802D - Unspecified open wound, left lower leg, subsequent encounter (7) Paroxysmal atrial fibrillation Code(s): I48.0 - PAROXYSMAL ATRIAL FIBRILLATION Assessment/Plan PLAN Continue with antibiotics per ID Dry dressing daily needs hyperbarics daily pain control with oxycodone PRN distal SFA occlusion on angiogram - recommends Hyperbaric therapy
--- NOTE | 2017-06-05 17:20 | PN ---
Progress Note (short form) - Note Progress Note: Vascular surgery Pt seen and examined. Left foot stable. Pt will benefit from HBO as outpt. Can be DC to [place] Follow up in wound care clinic next week. Jose Elias Hopkins DO
[2017-06-05] MEDS ORDERED: WARFARIN NA 5 MG TABLET (UD) PO SCH (18:00)
[2017-06-05] MEDS: ATORVASTATIN CA 20 MG TABLET (FP) PO SCH (21:22)
[2017-06-05] MEDS: LACTATED RINGERS SOLUTION 1,000 ML IV SCH (21:23)
[2017-06-05] MEDS: DEXTROSE 5%-0.45% SALINE 1,000 ML IV SCH (22:10)
[2017-06-06] MEDS: PIPERACILLIN/TAZOB 3.375 GM 3.375 GM in DEXTROSE 5%-WATER - 50 ML IVPB SCH ×2 (01:18→09:10)
[2017-06-06] MEDS: ACETAMINOPHEN 325 MG TABLET (FP) PO PRN ×3 (01:18→13:53)
[2017-06-06] MEDS: oxyCODONE HCL 5 MG TABLET PO PRN ×3 (01:18→10:21)
[2017-06-06] MEDS ORDERED: oxyCODONE HCL 5 MG TABLET PO ONE (02:34)
[2017-06-06] MEDS: GABAPENTIN 400 MG CAPSULE (FP) PO SCH ×2 (05:45→13:53)
[2017-06-06 08:39] LABS: ANION GAP 6 (8-16); BLOOD UREA NITROGEN 6 mg/dL (7-18); CHLORIDE 106 mmol/L (98-107); CO2 28 mmol/L (21-32); CREATININE 0.7 mg/dL (0.55-1.02); GLUCOSE,RANDOM 73 mg/dL (74-106); POTASSIUM 4.3 mmol/L (3.5-5.1); SODIUM 140 mmol/L (136-145)
[2017-06-06] MEDS ORDERED: PIPERACILLIN/TAZOBACTAM 3.375 GM VIAL IVPB ONE (09:05)
[2017-06-06] MEDS ORDERED: PT OWN MED DRAWER 7, Y5N ONE ×2 (09:05→11:41)
[2017-06-06] MEDS ORDERED: DEXTROSE 5%-WATER - 50 ML IVPB ONE (09:05)
[2017-06-06] MEDS: MULTIVITAMINS THER W-MINERALS COMBO TABLET (FP) PO SCH (09:10)
[2017-06-06] MEDS: DRONEDARONE HCL 400 MG TAB (FP) PO SCH (09:11)
[2017-06-06] MEDS: CLOPIDOGREL BISULFATE 75 MG TABLET (FP) PO SCH (09:11)
[2017-06-06] MEDS: HEPARIN NA (PORCINE) 5,000 UNITS/ML 1ML VIAL SQ SCH (09:11)
[2017-06-06] MEDS: ASPIRIN 81 MG CHEWABLE TABLETS PO SCH (09:11)
[2017-06-06] MEDS: TOLTERODINE TARTRATE LA 4 MG CAP.SR.24H (FP) PO SCH (09:11)
[2017-06-06] MEDS: CARVEDILOL 3.125 MG TABLET (FP) PO SCH (09:11)
[2017-06-06] MEDS: PANTOPRAZOLE 40 MG TABLET (FP) PO SCH (09:11)
[2017-06-06] MEDS: LOSARTAN POTASSIUM 25 MG TABLET PO SCH (09:11)
--- NOTE | 2017-06-06 12:05 | PN ---
Progress Note, Physician Chief Complaint: has pain in left leg has mild cough-- clear yellow sputum on iv fluids - Current Medication List Current Medications: Active Medications Acetaminophen (Tylenol -) 650 mg PO Q4H PRN PRN Reason: PAIN LEVEL 1-5 Last Admin: 06/06/17 05:45 Dose: 650 mg Aspirin (Asa -) 81 mg PO DAILY [facility] Last Admin: 06/06/17 09:11 Dose: 81 mg Atorvastatin Calcium (Lipitor -) 20 mg PO HS [facility] Last Admin: 06/05/17 21:22 Dose: 20 mg Carvedilol (Coreg -) 3.125 mg PO BID [facility] Last Admin: 06/06/17 09:11 Dose: 3.125 mg Clopidogrel Bisulfate (Plavix -) 75 mg PO DAILY [facility] Last Admin: 06/06/17 09:11 Dose: 75 mg Docusate Sodium (Colace -) 100 mg PO BID PRN PRN Reason: CONSTIPATION Last Admin: 06/04/17 21:39 Dose: 100 mg Dronedarone (Multaq -) 400 mg PO BID [facility] Last Admin: 06/06/17 09:11 Dose: 400 mg Gabapentin (Neurontin -) 400 mg PO TID [facility] Last Admin: 06/06/17 05:45 Dose: 400 mg Heparin Sodium (Porcine) (Heparin -) 5,000 unit SQ BID [facility] Last Admin: 06/06/17 09:11 Dose: 5,000 unit Lactated Ringer's (Lactated Ringers Solution) 1,000 mls @ 125 mls/hr IV ASDIR [facility] Last Admin: 06/05/17 21:23 Dose: 125 mls/hr Dextrose/Sodium Chloride (D5-1/2ns -) 1,000 mls @ 83 mls/hr IV ASDIR [facility] Last Admin: 06/05/17 22:10 Dose: Not Given Piperacillin Sod/Tazobactam (Sod 3.375 gm/ Dextrose) 50 mls @ 100 mls/hr IVPB Q8H-IV [facility] PRN Reason: Protocol Last Admin: 06/06/17 09:10 Dose: 100 mls/hr Losartan Potassium (Cozaar -) 25 mg PO DAILY [facility] Last Admin: 06/06/17 09:11 Dose: 25 mg Multivitamins/Minerals (Theragran-M) 1 each PO DAILY [facility] Last Admin: 06/06/17 09:10 Dose: 1 each Ondansetron HCl (Zofran Injection) 4 mg IVPUSH Q6H PRN PRN Reason: NAUSEA AND/OR VOMITING Oxycodone HCl (Roxicodone -) 5 mg PO Q4H PRN PRN Reason: PAIN LEVEL 6-10 Last Admin: 06/06/17 10:21 Dose: 5 mg Pantoprazole Sodium (Protonix -) 40 mg PO DAILY [facility] Last Admin: 06/06/17 09:11 Dose: 40 mg Tolterodine Tartrate (Detrol La -) 4 mg PO DAILY [facility] Last Admin: 06/06/17 09:11 Dose: 4 mg Warfarin Sodium (Coumadin -) 5 mg PO DAILY@1800 [facility] Last Admin: 06/05/17 17:39 Dose: 5 mg - Objective Vital Signs: Vital Signs Temperature 98 F 06/06/17 10:00 Pulse Rate 72 06/06/17 10:00 Respiratory Rate 20 06/06/17 10:00 Blood Pressure 144/72 06/06/17 10:00 O2 Sat by Pulse Oximetry (%) 95 06/06/17 09:00 Constitutional: Yes: No Distress Cardiovascular: Yes: Regular Rate and Rhythm Respiratory: Yes: Diminished. No: Rales, Rhonchi Gastrointestinal: Yes: Normal Bowel Sounds, Soft. No: Tenderness Edema: No Labs: CBC, BMP 06/04/17 06:30 06/06/17 06:30 INR, PTT INR 1.19 (0.82-1.09) H 06/01/17 16:05 Problem List - Problems (1) CAD (coronary artery disease) Code(s): I25.10 - ATHSCL HEART DISEASE OF [place] CORONARY ARTERY W/O ANG PCTRS Qualifiers: Coronary Disease-Associated Artery/Lesion type: [place] artery [place] vs. transplanted heart: [place] heart Associated angina: without angina Qualified Code(s): I25.10 - Atherosclerotic heart disease of [place] coronary artery without angina pectoris (2) Gangrene Code(s): I96 - [place], NOT ELSEWHERE CLASSIFIED (3) HTN (hypertension) Code(s): I10 - ESSENTIAL (PRIMARY) HYPERTENSION Qualifiers: Hypertension type: essential hypertension Qualified Code(s): I10 - Essential (primary) hypertension (4) Hx of CABG Code(s): Z95.1 - PRESENCE OF AORTOCORONARY BYPASS GRAFT (5) Hypercholesterolemia Code(s): E78.00 - PURE HYPERCHOLESTEROLEMIA, UNSPECIFIED (6) Leg wound, left Code(s): S81.802A - UNSPECIFIED OPEN WOUND, LEFT LOWER LEG, INITIAL ENCOUNTER Qualifiers: Encounter type: subsequent encounter Qualified Code(s): S81.802D - Unspecified open wound, left lower leg, subsequent encounter (7) Paroxysmal atrial fibrillation Code(s): I48.0 - PAROXYSMAL ATRIAL FIBRILLATION Assessment/Plan PLAN Continue with antibiotics per ID Dry dressing daily s/p angiogram distal SFA occlusion DC fluids change to po antibiotics if ok with ID for hyperbaric therapy
--- NOTE | 2017-06-06 12:34 | PN ---
Progress Note, Physician History of Present Illness: doing well no new issues throbbing pain - Current Medication List Current Medications: Active Medications Acetaminophen (Tylenol -) 650 mg PO Q4H PRN PRN Reason: PAIN LEVEL 1-5 Last Admin: 06/06/17 05:45 Dose: 650 mg Aspirin (Asa -) 81 mg PO DAILY [facility] Last Admin: 06/06/17 09:11 Dose: 81 mg Atorvastatin Calcium (Lipitor -) 20 mg PO HS [facility] Last Admin: 06/05/17 21:22 Dose: 20 mg Carvedilol (Coreg -) 3.125 mg PO BID [facility] Last Admin: 06/06/17 09:11 Dose: 3.125 mg Clopidogrel Bisulfate (Plavix -) 75 mg PO DAILY [facility] Last Admin: 06/06/17 09:11 Dose: 75 mg Docusate Sodium (Colace -) 100 mg PO BID PRN PRN Reason: CONSTIPATION Last Admin: 06/04/17 21:39 Dose: 100 mg Dronedarone (Multaq -) 400 mg PO BID [facility] Last Admin: 06/06/17 09:11 Dose: 400 mg Gabapentin (Neurontin -) 400 mg PO TID [facility] Last Admin: 06/06/17 05:45 Dose: 400 mg Piperacillin Sod/Tazobactam (Sod 3.375 gm/ Dextrose) 50 mls @ 100 mls/hr IVPB Q8H-IV [facility] PRN Reason: Protocol Last Admin: 06/06/17 09:10 Dose: 100 mls/hr Losartan Potassium (Cozaar -) 25 mg PO DAILY [facility] Last Admin: 06/06/17 09:11 Dose: 25 mg Multivitamins/Minerals (Theragran-M) 1 each PO DAILY [facility] Last Admin: 06/06/17 09:10 Dose: 1 each Ondansetron HCl (Zofran Injection) 4 mg IVPUSH Q6H PRN PRN Reason: NAUSEA AND/OR VOMITING Oxycodone HCl (Roxicodone -) 5 mg PO Q4H PRN PRN Reason: PAIN LEVEL 6-10 Last Admin: 06/06/17 10:21 Dose: 5 mg Pantoprazole Sodium (Protonix -) 40 mg PO DAILY [facility] Last Admin: 06/06/17 09:11 Dose: 40 mg Tolterodine Tartrate (Detrol La -) 4 mg PO DAILY [facility] Last Admin: 06/06/17 09:11 Dose: 4 mg Warfarin Sodium (Coumadin -) 5 mg PO DAILY@1800 [facility] Last Admin: 06/05/17 17:39 Dose: 5 mg - Objective Vital Signs: Vital Signs Temperature 98 F 06/06/17 10:00 Pulse Rate 72 06/06/17 10:00 Respiratory Rate 20 06/06/17 10:00 Blood Pressure 144/72 06/06/17 10:00 O2 Sat by Pulse Oximetry (%) 95 06/06/17 09:00 Constitutional: Yes: No Distress, Calm Cardiovascular: Yes: Regular Rate and Rhythm Respiratory: Yes: Regular, CTA Bilaterally Gastrointestinal: Yes: Normal Bowel Sounds, Soft Musculoskeletal: Yes: WNL Extremities: Yes: Other Wound/Incision: Yes: Dressing Dry and Intact Neurological: Yes: Alert, Oriented Psychiatric: Yes: Alert, Oriented Labs: CBC, BMP 06/04/17 06:30 06/06/17 06:30 INR, PTT INR 1.19 (0.82-1.09) H 06/01/17 16:05 Assessment/Plan Problem List - Problems (1) CAD (coronary artery disease) Code(s): I25.10 - ATHSCL HEART DISEASE OF [place] CORONARY ARTERY W/O ANG PCTRS (2) Gangrene Code(s): I96 - [place], NOT ELSEWHERE CLASSIFIED (3) HTN (hypertension) Code(s): I10 - ESSENTIAL (PRIMARY) HYPERTENSION Qualifiers: Hypertension type: essential hypertension Qualified Code(s): I10 - Essential (primary) hypertension (4) Hx of CABG Code(s): Z95.1 - PRESENCE OF AORTOCORONARY BYPASS GRAFT (5) Hypercholesterolemia Code(s): E78.00 - PURE HYPERCHOLESTEROLEMIA, UNSPECIFIED (6) Leg wound, left Code(s): S81.802A - UNSPECIFIED OPEN WOUND, LEFT LOWER LEG, INITIAL ENCOUNTER (7) Paroxysmal atrial fibrillation Code(s): I48.0 - PAROXYSMAL ATRIAL FIBRILLATION 8 gangrene of the left heel plan changed to oral augmentin rest continue as per vascular patient to get abx for another 7 days wound care
--- NOTE | 2017-06-06 12:56 | DS ---
Physical Examination Vital Signs: Vital Signs Temperature 98 F 06/06/17 10:00 Pulse Rate 72 06/06/17 10:00 Respiratory Rate 20 06/06/17 10:00 Blood Pressure 144/72 06/06/17 10:00 O2 Sat by Pulse Oximetry (%) 95 06/06/17 09:00 Labs: CBC, BMP 06/04/17 06:30 06/06/17 06:30 Discharge Summary Reason For Visit: GANGRENE Current Active Problems CAD (coronary artery disease) (Acute) Elevated hemoglobin A1c (Acute) Gangrene (Acute) HTN (hypertension) (Acute) Hx of CABG (Acute) Hypercholesterolemia (Acute) Leg wound, left (Acute) Paroxysmal atrial fibrillation (Acute) Peripheral artery disease (Acute) S/P coronary artery stent placement (Acute) Condition: Improved - Instructions Diet, Activity, Other Instructions: Augmentin 500mg BID x 5 days more Check INR twice weekly Hyperbaric oxygen therapy dry dressing daily Referrals: Daniele Ray MD [Primary Care Provider] - [facility] - Home Medications Comprehensive Discharge Medication List: Ambulatory Orders Bumetanide 0.5 mg PO DAILY 05/12/14 Clopidogrel Bisulfate [Clopidogrel] 75 mg PO DAILY 05/12/14 Dronedarone HCl [Multaq] 400 mg PO BID 05/12/14 Esomeprazole Mag Trihydrate [Nexium] 40 mg PO DAILY 05/12/14 Fesoterodine Fumarate [Toviaz] 4 mg PO DAILY 05/12/14 Acetaminophen [Tylenol .Regular Strength -] 650 mg PO BID 03/13/17 Atorvastatin Ca [Lipitor] 20 mg PO HS 03/13/17 Calcium Carb/Magnesium Hydrox [Antacid Chewable Tablet] 1 each PO BID 03/13/17 Carvedilol [Coreg] 3.125 mg PO DAILY 03/13/17 Cyclosporine [Restasis] 1 drop OU BID 03/13/17 Gabapentin [Neurontin] 400 mg PO TID 03/13/17 Multivit-Min/Iron Fum/Folic AC [Ptrij-Szsjrul-Kgbogagd Tablet] 1 tab PO DAILY Aspirin [ASA -] 81 mg PO DAILY tab.chew 04/17/17 Docusate Sodium [Colace -] 100 mg PO BID PRN capsule 04/17/17 Tolterodine Tartrate LA [Detrol LA -] 4 mg PO DAILY cap.sr.24h 04/17/17 Amox-Tr/K Cl [Augmentin 500-125mg Tablet -] 1 tab PO BID@0800,1730 #10 tablet Warfarin Na [Coumadin -] 5 mg PO DAILY@1800 #60 tablet 06/06/17 oxyCODONE HCL [Roxicodone -] 5 mg PO Q4H PRN #60 tablet MDD 4 06/06/17
[2017-06-06 13:58] VITALS: BP 141/63; PULSE 87; TEMP 98.9
--- NOTE | 2017-06-06 14:30 | PN ---
Progress Note (short form) - Note Progress Note: Chief Complaint: Events noted, notes reviewed, complaining of persistent left lower extremity discomfort, denies any chest discomfort or dyspnea History of Present Illness: Seen and examined. Events noted, notes reviewed, complaining of persistent left lower extremity discomfort, denies any chest discomfort or dyspnea Plan to discharge for outpatient hyperbaric oxygen therapy Echocardiography performed 06/02/2017 revealed Normal biventricular size and function with mild TR - Current Medication List Current Medications Acetaminophen (Tylenol -) 650 mg PO Q4H PRN PRN Reason: PAIN LEVEL 1-5 Last Admin: 06/06/17 13:53 Dose: 650 mg Amoxicillin/Clavulanate Potassium (Augmentin - 500mg Tablet) 1 tab PO BID@0800, 1730 [facility] Aspirin (Asa -) 81 mg PO DAILY [facility] Last Admin: 06/06/17 09:11 Dose: 81 mg Atorvastatin Calcium (Lipitor -) 20 mg PO HS [facility] Last Admin: 06/05/17 21:22 Dose: 20 mg Carvedilol (Coreg -) 3.125 mg PO BID [facility] Last Admin: 06/06/17 09:11 Dose: 3.125 mg Clopidogrel Bisulfate (Plavix -) 75 mg PO DAILY [facility] Last Admin: 06/06/17 09:11 Dose: 75 mg Docusate Sodium (Colace -) 100 mg PO BID PRN PRN Reason: CONSTIPATION Last Admin: 06/04/17 21:39 Dose: 100 mg Dronedarone (Multaq -) 400 mg PO BID [facility] Last Admin: 06/06/17 09:11 Dose: 400 mg Gabapentin (Neurontin -) 400 mg PO TID [facility] Last Admin: 06/06/17 13:53 Dose: 400 mg Losartan Potassium (Cozaar -) 25 mg PO DAILY [facility] Last Admin: 06/06/17 09:11 Dose: 25 mg Multivitamins/Minerals (Theragran-M) 1 each PO DAILY [facility] Last Admin: 06/06/17 09:10 Dose: 1 each Ondansetron HCl (Zofran Injection) 4 mg IVPUSH Q6H PRN PRN Reason: NAUSEA AND/OR VOMITING Oxycodone HCl (Roxicodone -) 5 mg PO Q4H PRN PRN Reason: PAIN LEVEL 6-10 Last Admin: 06/06/17 10:21 Dose: 5 mg Pantoprazole Sodium (Protonix -) 40 mg PO DAILY [facility] Last Admin: 06/06/17 09:11 Dose: 40 mg Tolterodine Tartrate (Detrol La -) 4 mg PO DAILY [facility] Last Admin: 06/06/17 09:11 Dose: 4 mg Warfarin Sodium (Coumadin -) 5 mg PO DAILY@1800 [facility] Last Admin: 06/05/17 17:39 Dose: 5 mg - Objective Vital Signs: Last Vital Signs Temp Pulse Resp BP Pulse Ox 98.9 F 87 20 141/63 95 06/06/17 13:57 06/06/17 13:57 06/06/17 13:57 06/06/17 13:57 06/06/17 09:00 Intake & Output 06/03/17 06/04/17 06/05/17 06/06/17 23:59 23:59 23:59 23:59 Intake Total 1700 4435 3925 1100 Output Total 0 Balance 1700 4435 3925 1100 Weight 127 lb 5 oz 132 lb 14.4 oz Constitutional: No Distress, Calm, Thin Neck: Supple Negative JVD Cardiovascular: S1 and S2 Regular Rate and Rhythm Respiratory: Clear to A&P Bilaterally Gastrointestinal: Soft, Benign Normal Bowel Sounds Ext: No Edema, dressing noted left foot Labs: CBC, BMP 06/04/17 06:30 06/06/17 06:30 INR, PTT INR 1.19 (0.82-1.09) H 06/01/17 16:05 Assessment/Plan ASSESSMENT: 1. PAD post RLE bypass planned for Hyperbaric oxygen therapy 2. Coronary artery disease post CABG, PCI/stent, angina pectoris 3. Diastolic left ventricular dysfunction with class 0 [place] [employer] classification left ventricular failure 4. Paroxysmal atrial fibrillation currently in sinus rhythm on Warfarin therapy [id number] score of 7 5. Hypertension 6. Diabetes mellitus 7. Hypercholesterolemia PLAN: 1. Continue Carvedilol 2. Continue Cozaar 3. Continue Coumadin and consider discontinuation of ASA therapy and continuation of Plavix therapy with caution in conjunction with Coumadin therapy administration 4. Continue Multaq therapy with caution, absence of signs and symptoms of clinical congestive heart failure 5. Antibiotics as per the primary team Phill Winkler MD
[2017-06-06] MEDS ORDERED: AMOX TR/POT CLAV 500MG/125MG TABLETS (FP) PO SCH (17:30)
== END 2017-06-06 16:05 | DRG 300 ==
LOC: JER 13:43 → JERBED 15:09 → J8W 23:33
PROVIDERS: ADMIT Internal Medicine; ATTEND Internal Medicine
PROC: B40DYZZ Plain Radiography of Aorta and Bilateral Lower Extremity Arteries using Other Contrast (ICD-10-PCS; 2017-06-04)
PROC: B40GYZZ Plain Radiography of Left Lower Extremity Arteries using Other Contrast (ICD-10-PCS; principal; 2017-06-04 12:30)
DX: I96 Gangrene, not elsewhere classified (principal); L97.929 Non-pressure chronic ulcer of unspecified part of left lower leg with unspecified severity; I50.1 Left ventricular failure, unspecified; I73.9 Peripheral vascular disease, unspecified; I77.1 Stricture of artery; I48.0 Paroxysmal atrial fibrillation; I10 Essential (primary) hypertension; I25.10 Atherosclerotic heart disease of native coronary artery without angina pectoris; K21.9 Gastro-esophageal reflux disease without esophagitis; I25.119 Atherosclerotic heart disease of native coronary artery with unspecified angina pectoris; Z98.61 Coronary angioplasty status; Z95.1 Presence of aortocoronary bypass graft; E11.9 Type 2 diabetes mellitus without complications
CPT/HCPCS: 36415; 71045-TC-FY; 76000-TC-FY; 80048; 80053; 81003; 81015; 82962; 83036; 85025; 85027; 85610; 85730; 87040; 93005; 93010; 93306-TC; 94010; 94760; 99284-25; G0463-25; J1644

== ENCOUNTER 2017-07-10 13:11 | Observation (INO) | payer OTHER ==
--- NOTE | 2017-07-10 13:47 | PDOC ---
History of Present Illness - General History Source: Patient, Correction Records - History of Present Illness Timing/Duration: other (last night) Associated Symptoms: denies: chest pain, cough, fever/chills, headaches, nausea/ vomiting, shortness of breath, weakness <Alaina Chester - Last Filed: 07/15/17 12:14> <Bart Hamilton - Last Filed: 07/17/17 15:30> - General Chief Complaint: Revisit, Lab Variance Stated Complaint: BLEEDING NOSE/MOUTH Time Seen by Provider: 07/10/17 13:29 Past History - Past Medical History Anemia: No Asthma: No Cancer: No Cardiac Disorders: Yes (ASHD CARDIAC STENTS AND CABG, VASCULAR DISEASE, AFIB) CVA: No COPD: No CHF: Yes Dementia: No Diabetes: No GI Disorders: Yes (gerd) Disorders: No HTN: Yes Hypercholesterolemia: Yes (PVD) Liver Disease: No Psychiatric Problems: Yes (major depressive disorder) Seizures: No Thyroid Disease: No Other medical history: osteoartritis - Surgical History Abdominal Surgery: Yes Appendectomy: No Cardiac Surgery: Yes (QUADRUPLE CABG 2007) Cholecystectomy: No Lung Surgery: No Neurologic Surgery: No Orthopedic Surgery: No - Immunization History Immunization Up to Date: Yes - Suicide/Smoking/Psychosocial Hx Smoking History: Never smoked Have you smoked in the past 12 months: No If you are a former smoker, when did you quit?: 1994 Information on smoking cessation initiated: No Hx Alcohol Use: No Drug/Substance Use Hx: No Substance Use Type: None Hx Substance Use Treatment: No <Alaina Chester - Last Filed: 07/15/17 12:14> <Bart Hamilton - Last Filed: 07/17/17 15:30> - Past Medical History Allergies/Adverse Reactions: Allergies Allergy/AdvReac Type Severity Reaction Status Date / Time No Known Allergies Allergy Verified 07/17/17 10:35 Home Medications: Ambulatory Orders Bumetanide 0.5 mg PO DAILY 05/12/14 Clopidogrel Bisulfate [Clopidogrel] 75 mg PO DAILY 05/12/14 Dronedarone HCl [Multaq] 400 mg PO BID 05/12/14 Esomeprazole Mag Trihydrate [Nexium] 40 mg PO DAILY 05/12/14 Fesoterodine Fumarate [Toviaz] 4 mg PO DAILY 05/12/14 Atorvastatin Ca [Lipitor] 40 mg PO HS 03/13/17 Calcium Carb/Magnesium Hydrox [Antacid Chewable Tablet] 1 each PO BID 03/13/17 Carvedilol [Coreg] 3.125 mg PO DAILY 03/13/17 Cyclosporine [Restasis] 1 drop OU BID 03/13/17 Gabapentin [Neurontin] 400 mg PO TID 03/13/17 Multivit-Min/Iron Fum/Folic AC [Fddgs-Ajmrvby-Hywrhsbn Tablet] 1 tab PO DAILY Aspirin [ASA -] 81 mg PO DAILY tab.chew 04/17/17 Tolterodine Tartrate LA [Detrol LA -] 4 mg PO DAILY cap.sr.24h 04/17/17 Ascorbic Acid [Vitamin C] 500 mg PO BID 07/10/17 Cholecalciferol (Vitamin D3) [Vitamin D3] 1,000 unit PO DAILY 07/10/17 Duloxetine HCl 60 mg PO DAILY 07/10/17 oxyCODONE HCL [Roxicodone -] 5 mg PO QID PRN MDD 4 07/10/17 Docusate Sodium [Colace -] 100 mg PO BID PRN capsule 07/12/17 Polyethylene Glycol 3350 [Miralax 119 gm Btl -] 17 gm PO DAILY bottle 07/12/17 Warfarin Na [Coumadin -] 3 mg PO DAILY@1800 30 Days #60 tablet 07/12/17 Review of Systems - Review of Systems Constitutional: No: Chills, Fever HEENTM: No: Blurred Vision Respiratory: No: Cough, Shortness of Breath Cardiac (ROS): No: Chest Pain ABD/GI: No: Constipated, Diarrhea, Nausea, Rectal Bleeding, Vomiting, Abdominal cramping, Tarry Stools : No: Hematuria Neurological: No: Headache, Dizziness <Alaina Chester - Last Filed: 07/15/17 12:14> *Physical Exam - Vital Signs Last Vital Signs Temp Pulse Resp BP Pulse Ox 98.2 F 91 H 18 135/76 100 07/10/17 13:25 07/10/17 13:25 07/10/17 13:25 07/10/17 13:25 07/10/17 13:25 - Physical Exam General Appearance: Yes: Appropriately Dressed. No: Apparent Distress HEENT: positive: Normal Voice, Other (no epistaxis, no blood in oropharynx). negative: Scleral Icterus (R), Scleral Icterus (L) Neck: positive: Supple Respiratory/Chest: positive: Lungs Clear, Normal Breath Sounds. negative: Respiratory Distress Cardiovascular: positive: Regular Rate, S1, S2 Gastrointestinal/Abdominal: positive: Soft. negative: Tender Integumentary: positive: Dry, Warm Neurologic: positive: Fully Oriented, Alert, Normal Mood/Affect <Alaina Chester - Last Filed: 07/15/17 12:14> - Vital Signs Last Vital Signs Temp Pulse Resp BP Pulse Ox 98.5 F 92 H 18 112/57 97 07/12/17 10:00 07/12/17 10:00 07/12/17 10:00 07/12/17 10:00 07/12/17 16:00 <Bart Hamilton - Last Filed: 07/17/17 15:30> ED Treatment Course - LABORATORY CBC & Chemistry Diagram: 07/12/17 11:42 07/11/17 07:00 <Alaina Chester - Last Filed: 07/15/17 12:14> - LABORATORY CBC & Chemistry Diagram: 07/12/17 11:42 07/11/17 07:00 - ADDITIONAL ORDERS Additional order review: 07/10/17 14:10 RBC 3.28 L MCV 90.5 MCHC 32.4 RDW 17.1 H MPV 9.3 Neutrophils % 59.6 Lymphocytes % 26.0 D Monocytes % 10.1 Eosinophils % 2.9 Basophils % 1.4 D - Medications Given in the ED: ED Medications Discontinued Medications Generic Name Dose Route Start Last Admin Trade Name Jj PRN Reason Stop Dose Admin Atorvastatin Calcium 40 mg 07/10/17 22:00 07/11/17 21:44 Lipitor - PO 40 mg HS DOMINIC Administration Bumetanide 0.5 mg 07/11/17 10:00 07/12/17 09:40 Bumex - PO 0.5 mg DAILY DOMINIC Administration Calcium Carbonate 650 mg 07/10/17 22:00 07/12/17 09:40 Calcium Carbonate - PO 650 mg BID DOMINIC Administration Carvedilol 3.125 mg 07/10/17 22:00 07/12/17 09:39 Coreg - PO 3.125 mg BID DOMINIC Administration Cholecalciferol 1,000 unit 07/11/17 10:00 07/12/17 09:39 Vitamin D3 - PO 1,000 unit DAILY DOMINIC Administration Docusate Sodium 100 mg 07/10/17 15:59 07/12/17 14:10 Colace - PO 100 mg BID PRN Administration CONSTIPATION Dronedarone 400 mg 07/10/17 22:00 07/12/17 09:41 Multaq - PO 400 mg BID DOMINIC Administration Duloxetine HCl 60 mg 07/11/17 10:00 07/12/17 09:39 Cymbalta - PO 60 mg DAILY DOMINIC Administration Gabapentin 400 mg 07/10/17 22:00 07/12/17 14:10 Neurontin - PO 400 mg TID DOMINIC Administration Multivitamins/Minerals/Vitamin C 1 tab 07/11/17 10:00 07/12/17 09:39 Tab-A-Vit - PO 1 tab DAILY DOMINIC Administration Oxycodone HCl 5 mg 07/10/17 15:57 07/12/17 16:46 Roxicodone - PO 5 mg Q6H PRN Administration PAIN LEVEL 6-10 Pantoprazole Sodium 40 mg 07/11/17 10:00 07/12/17 09:39 Protonix - PO 40 mg DAILY DOMINIC Administration Polyethylene Glycol 17 gm 07/11/17 13:00 07/12/17 09:42 Miralax (For Daily Use) - PO 17 grams DAILY ODMINIC Administration Tolterodine Tartrate 4 mg 07/11/17 10:00 07/12/17 09:39 Detrol La - PO 4 mg DAILY DOMINIC Administration <Bart Hamilton - Last Filed: 07/17/17 15:30> Medical Decision Making - Medical Decision Making 07/10/17 13:41 87-year-old female sent from [facility] with a past medical history of CAD, CHF, A.fib on Coumadin, PVD, status post bilateral angioplasty, 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 Patient has been complaining of spitting up bright red blood w/ ?epistaxis since yesterday, since resolved. Denies cough, shortness of breath, fever, chills, changes to bowel movements, hematochezia, melena, headache or dizziness. Found to have INR of 9 this a.m. and has since been given 10 mg subcutaneous vitamin K. Coumadin currently being held. Last doen was 4mg yesterday per [facility]. Patient also on Plavix. No bleeding currently See exam Sent from [place] for super therapeutic INR INR 9 this am, since given vit K Splitting up blood since last night, resolved now No additional bleeding per pt No WAGGONER, dizziness Stable and well nathen -labs -discuss management w/ ED attp -anticipate admission 07/10/17 13:51 Signed out to resident Venegas pending labs. Plan is to hold coumadin, monitor INR and rpt vit K as necessary <Alaina Chester - Last Filed: 07/15/17 12:14> - Medical Decision Making The patient was seen and evaluated in conjunction with MARIZOL Chester under my direct supervision, ancillary studies were reviewed. I independently interviewed and evaluated the patient and I agree with the plan as outlined by MARIZOL Chester . <Bart Hamilton - Last Filed: 07/17/17 15:30> *DC/Admit/Observation/Transfer <Alaina Chester - Last Filed: 07/15/17 12:14> <Bart Hamilton - Last Filed: 07/17/17 15:30> Diagnosis at time of Disposition: Supratherapeutic INR - Discharge Dispostion Disposition: [facility] Condition at time of disposition: Stable
[2017-07-10 14:21] LABS: BASO % 1.4 % (0-2.0); EOS % 2.9 % (0-4.5); HEMATOCRIT 29.6 % (32.4-45.2); HEMOGLOBIN 9.6 GM/dL (10.7-15.3); MCH 29.3 pg (25.7-33.7); MCHC 32.4 g/dl (32.0-36.0); MEAN CELL VOLUME 90.5 fl (80-96); MEAN PLT VOLUME 9.3 fl (7.5-11.1); MONO % 10.1 % (3.8-10.2); NEUT % 59.6 % (42.8-82.8); PLATELET COUNT 293 K/MM3 (134-434); RBC 3.28 M/mm3 (3.60-5.2); RDW 17.1 % (11.6-15.6); WHITE BLOOD COUNT 8.9 K/mm3 (4.0-10.0)
[2017-07-10 15:12] LABS: PROTHROMBIN TIME (PATIENT) 166.9 SEC (9.7-13.0)
[2017-07-10 15:14] LABS: INR 14.77 (0.82-1.09)
[2017-07-10 15:24] LABS: CHLORIDE 100 mmol/L (98-107); POTASSIUM 4.3 mmol/L (3.5-5.1); SODIUM 137 mmol/L (136-145)
[2017-07-10 15:32] LABS: ANION GAP 7 (8-16); BILIRUBIN,TOTAL 0.2 mg/dL (0.2-1.0); BLOOD UREA NITROGEN 23 mg/dL (7-18); CALCIUM 8.7 mg/dL (8.5-10.1); CO2 30 mmol/L (21-32); CREATININE 0.9 mg/dL (0.55-1.02); GLUCOSE,RANDOM 101 mg/dL (74-106); SGOT/AST 17 U/L (15-37); TOT PROT 7.6 g/dl (6.4-8.2)
[2017-07-10 15:38] LABS: ALK PHOS 74 U/L (45-117)
--- NOTE | 2017-07-10 15:40 | PDOC ---
*Physical Exam - Vital Signs Last Vital Signs Temp Pulse Resp BP Pulse Ox 98.2 F 91 H 18 135/76 100 07/10/17 13:25 07/10/17 13:25 07/10/17 13:25 07/10/17 13:25 07/10/17 13:25 - Physical Exam Comments: 07/10/17 15:39 GENERAL: Awake, alert, and fully oriented, in no acute distress HEAD: No signs of trauma, normocephalic, atraumatic EYES: PERRLA, EOMI, sclera anicteric, conjunctiva clear ENT: Hearing grossly normal, nares patent, oropharynx clear without exudates. Moist mucosa NECK: Normal ROM, supple, no lymphadenopathy, JVD, or masses LUNGS: No distress, speaks full sentences, clear to auscultation bilaterally HEART: Regular rate and rhythm, normal S1 and S2, no murmurs, rubs or gallops, peripheral pulses normal and equal bilaterally. ABDOMEN: Soft, nontender, normoactive bowel sounds. No guarding, no rebound. No masses EXTREMITIES : Normal inspection, Normal range of motion, no edema. No clubbing or cyanosis. SKIN: Warm, Dry, normal turgor, no rashes or lesions noted ED Treatment Course - LABORATORY CBC & Chemistry Diagram: 07/10/17 14:10 07/10/17 14:10 - ADDITIONAL ORDERS Additional order review: Laboratory Results 07/10/17 07/10/17 07/10/17 14:10 14:10 14:10 PT with INR 166.90 H INR 14.77 H* Sodium 137 Potassium 4.3 Chloride 100 Blood Type A NEGATIVE Antibody Screen Negative 07/10/17 14:10 RBC 3.28 L MCV 90.5 MCHC 32.4 RDW 17.1 H MPV 9.3 Neutrophils % 59.6 Lymphocytes % 26.0 D Monocytes % 10.1 Eosinophils % 2.9 Basophils % 1.4 D Medical Decision Making - Medical Decision Making 07/10/17 15:35 87 yo F with h/o of CAD, CHF, A.fib on Coumadin, PVD, s/p BL angioplasty, 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 Received 10 mg subcutaneous vitamin K. Withholding Coumadin. Patient on Plavix. Last Coumadin 4mg given yesterday per [facility]. No bleeding currently. Pt. asymptomatic. ED Course: INR~ 14.7 CBC: Unremarkable. H/H: 9.6/29.6. PLT 293 CMP: Unremarkable Patient admitted to Dr. Galindo Matta for INR control. *DC/Admit/Observation/Transfer Diagnosis at time of Disposition: Supratherapeutic INR - Discharge Dispostion Decision to Admit order: Yes - Referrals - Patient Instructions - Post Discharge Activity
[2017-07-10 15:42] LABS: ALBUMIN 3.2 g/dl (3.4-5.0); SGPT/ALT 15 U/L (12-78)
--- NOTE | 2017-07-10 15:59 | HP ---
Admitting History and Physical - Primary Care Physician PCP: Demar Paige - Admission History of Present Illness: 87-year-old female sent from [facility] with a past medical history of CAD, CHF, A.fib on Coumadin, PVD, status post bilateral angioplasty, pvd- ischemic toes-- send for epistaxis/ supra therapeutic inr-- 9 given vit k to be admitted for monitoring epistaxis resolved pt seen by me in er chart reviewed History Source: Patient, Medical Record - Past Medical History Cardiovascular: Yes: AFIB, CAD (CABG), CHF, HTN, Hyperlipdemia Endocrine: Yes: Other (Possible diabetes (HGB A!C 6.3)) - Past Surgical History Past Surgical History: Yes: CABG, Cataract Removal, Hysterectomy, Stent - Smoking History Smoking history: Never smoked Have you smoked in the past 12 months: No If you are a former smoker, when did you quit?: 1994 - Alcohol/Substance Use Hx Alcohol Use: No Home Medications - Allergies Allergies/Adverse Reactions: Allergies Allergy/AdvReac Type Severity Reaction Status Date / Time No Known Allergies Allergy Verified 07/10/17 13:32 - Home Medications Home Medications: Ambulatory Orders Bumetanide 0.5 mg PO DAILY 05/12/14 Clopidogrel Bisulfate [Clopidogrel] 75 mg PO DAILY 05/12/14 Dronedarone HCl [Multaq] 400 mg PO BID 05/12/14 Esomeprazole Mag Trihydrate [Nexium] 40 mg PO DAILY 05/12/14 Fesoterodine Fumarate [Toviaz] 4 mg PO DAILY 05/12/14 Atorvastatin Ca [Lipitor] 40 mg PO HS 03/13/17 Calcium Carb/Magnesium Hydrox [Antacid Chewable Tablet] 1 each PO BID 03/13/17 Carvedilol [Coreg] 3.125 mg PO DAILY 03/13/17 Cyclosporine [Restasis] 1 drop OU BID 03/13/17 Gabapentin [Neurontin] 400 mg PO TID 03/13/17 Multivit-Min/Iron Fum/Folic AC [Lygir-Xayofzh-Qrezlfly Tablet] 1 tab PO DAILY Aspirin [ASA -] 81 mg PO DAILY tab.chew 04/17/17 Tolterodine Tartrate LA [Detrol LA -] 4 mg PO DAILY cap.sr.24h 04/17/17 Warfarin Na [Coumadin -] 5 mg PO DAILY@1800 #60 tablet 06/06/17 Ascorbic Acid [Vitamin C] 500 mg PO BID 07/10/17 Cholecalciferol (Vitamin D3) [Vitamin D3] 1,000 unit PO DAILY 07/10/17 Duloxetine HCl 60 mg PO DAILY 07/10/17 oxyCODONE HCL [Roxicodone -] 5 mg PO QID PRN MDD 4 07/10/17 Family Disease History - Family Disease History Family Disease History: Heart Disease: Father, [place]: Mother (esophageal), Brother (esophageal) Review of Systems - Review of Systems Constitutional: reports: No Symptoms Eyes: reports: No Symptoms HENT: reports: Epistaxis Neck: reports: No Symptoms Cardiovascular: reports: No Symptoms Respiratory: reports: No Symptoms Gastrointestinal: reports: No Symptoms Genitourinary: reports: No Symptoms Neurological: reports: No Symptoms Psychiatric: reports: No Symptoms Physical Examination Vital Signs: Vital Signs Temperature 98.2 F 07/10/17 13:25 Pulse Rate 91 H 07/10/17 13:25 Respiratory Rate 18 07/10/17 13:25 Blood Pressure 135/76 07/10/17 13:25 O2 Sat by Pulse Oximetry (%) 100 07/10/17 13:25 Constitutional: Yes: No Distress, Calm Eyes: Yes: Conjunctiva Clear Neck: Yes: Supple Cardiovascular: Yes: Regular Rate and Rhythm Respiratory: Yes: CTA Bilaterally Gastrointestinal: Yes: Soft Extremities: Yes: Cyanosis Neurological: Yes: Alert Psychiatric: Yes: Alert Labs: CBC, BMP 07/10/17 14:10 07/10/17 14:10 Problem List - Problems (1) Supratherapeutic INR Code(s): R79.1 - ABNORMAL COAGULATION PROFILE (2) CAD (coronary artery disease) Code(s): I25.10 - ATHSCL HEART DISEASE OF [place] CORONARY ARTERY W/O ANG PCTRS Qualifiers: Coronary Disease-Associated Artery/Lesion type: [place] artery [place] vs. transplanted heart: [place] heart Associated angina: without angina Qualified Code(s): I25.10 - Atherosclerotic heart disease of [place] coronary artery without angina pectoris (3) Gangrene Code(s): I96 - GANGRENE, NOT ELSEWHERE CLASSIFIED (4) HTN (hypertension) Code(s): I10 - ESSENTIAL (PRIMARY) HYPERTENSION Qualifiers: Hypertension type: essential hypertension Qualified Code(s): I10 - Essential (primary) hypertension (5) Hx of CABG Code(s): Z95.1 - PRESENCE OF AORTOCORONARY BYPASS GRAFT (6) Paroxysmal atrial fibrillation Code(s): I48.0 - PAROXYSMAL ATRIAL FIBRILLATION (7) Peripheral artery disease Code(s): I73.9 - PERIPHERAL VASCULAR DISEASE, UNSPECIFIED Assessment/Plan Monitor today f/u inr will follow hold plavix and coumadin.
--- NOTE | 2017-07-10 16:02 | HP ---
Admitting History and Physical - Primary Care Physician PCP: Demar Paige - Past Medical History Cardiovascular: Yes: AFIB, CAD (CABG), CHF, HTN, Hyperlipdemia Endocrine: Yes: Other (Possible diabetes (HGB A!C 6.3)) - Past Surgical History Past Surgical History: Yes: CABG, Cataract Removal, Hysterectomy, Stent - Smoking History Smoking history: Never smoked Have you smoked in the past 12 months: No If you are a former smoker, when did you quit?: 1994 - Alcohol/Substance Use Hx Alcohol Use: No Home Medications - Allergies Allergies/Adverse Reactions: Allergies Allergy/AdvReac Type Severity Reaction Status Date / Time No Known Allergies Allergy Verified 07/10/17 13:32 - Home Medications Home Medications: Ambulatory Orders Bumetanide 0.5 mg PO DAILY 05/12/14 Clopidogrel Bisulfate [Clopidogrel] 75 mg PO DAILY 05/12/14 Dronedarone HCl [Multaq] 400 mg PO BID 05/12/14 Esomeprazole Mag Trihydrate [Nexium] 40 mg PO DAILY 05/12/14 Fesoterodine Fumarate [Toviaz] 4 mg PO DAILY 05/12/14 Atorvastatin Ca [Lipitor] 40 mg PO HS 03/13/17 Calcium Carb/Magnesium Hydrox [Antacid Chewable Tablet] 1 each PO BID 03/13/17 Carvedilol [Coreg] 3.125 mg PO DAILY 03/13/17 Cyclosporine [Restasis] 1 drop OU BID 03/13/17 Gabapentin [Neurontin] 400 mg PO TID 03/13/17 Multivit-Min/Iron Fum/Folic AC [Jygrr-Lmaklgw-Nwenczvf Tablet] 1 tab PO DAILY Aspirin [ASA -] 81 mg PO DAILY tab.chew 04/17/17 Tolterodine Tartrate LA [Detrol LA -] 4 mg PO DAILY cap.sr.24h 04/17/17 Warfarin Na [Coumadin -] 5 mg PO DAILY@1800 #60 tablet 06/06/17 Ascorbic Acid [Vitamin C] 500 mg PO BID 07/10/17 Cholecalciferol (Vitamin D3) [Vitamin D3] 1,000 unit PO DAILY 07/10/17 Duloxetine HCl 60 mg PO DAILY 07/10/17 oxyCODONE HCL [Roxicodone -] 5 mg PO QID PRN MDD 4 07/10/17 Family Disease History - Family Disease History Family Disease History: Heart Disease: Father, CA: Mother (esophageal), Brother (esophageal) Physical Examination Vital Signs: Vital Signs Temperature 98.2 F 07/10/17 13:25 Pulse Rate 91 H 07/10/17 13:25 Respiratory Rate 18 07/10/17 13:25 Blood Pressure 135/76 07/10/17 13:25 O2 Sat by Pulse Oximetry (%) 100 07/10/17 13:25 Labs: CBC, BMP 07/10/17 14:10 07/10/17 14:10
[2017-07-10] MEDS: oxyCODONE HCL 5 MG TABLET PO PRN (17:37)
[2017-07-10 18:03] VITALS: BMI 25.5
[2017-07-10] MEDS: ATORVASTATIN CA 40 MG TABLET (FP) PO SCH (21:36)
[2017-07-10] MEDS: GABAPENTIN 400 MG CAPSULE (FP) PO SCH (21:36)
[2017-07-10] MEDS: CARVEDILOL 3.125 MG TABLET (FP) PO SCH (21:38)
[2017-07-10] MEDS: DRONEDARONE HCL 400 MG TAB (FP) PO SCH (21:48)
[2017-07-10] MEDS: CALCIUM CARBONATE 650 MG TABLET PO SCH (21:48)
[2017-07-10] MEDS ORDERED: PATIENT'S OWN MEDICATION (NON-FORMULARY) (Cyclosporine [Restasis] 1 DROP) OU SCH (22:00)
[2017-07-11] MEDS: GABAPENTIN 400 MG CAPSULE (FP) PO SCH ×3 (05:32→21:44)
[2017-07-11 07:49] LABS: HEMOGLOBIN 9.5 GM/dL (10.7-15.3); MCH 29.6 pg (25.7-33.7); MCHC 32.6 g/dl (32.0-36.0); MEAN CELL VOLUME 90.7 fl (80-96); PLATELET COUNT 272 K/MM3 (134-434); RDW 17.1 % (11.6-15.6); WHITE BLOOD COUNT 8.8 K/mm3 (4.0-10.0)
[2017-07-11 07:51] LABS: PROTHROMBIN TIME (PATIENT) 84.4 SEC (9.7-13.0)
[2017-07-11 07:56] LABS: INR 7.47 (0.82-1.09)
[2017-07-11 08:04] LABS: CHLORIDE 100 mmol/L (98-107); POTASSIUM 4.4 mmol/L (3.5-5.1); SODIUM 138 mmol/L (136-145)
[2017-07-11 08:14] LABS: ALK PHOS 66 U/L (45-117); ANION GAP 9 (8-16); BILIRUBIN,TOTAL 0.3 mg/dL (0.2-1.0); BLOOD UREA NITROGEN 25 mg/dL (7-18); CALCIUM 8.7 mg/dL (8.5-10.1); CO2 29 mmol/L (21-32); GLUCOSE,RANDOM 90 mg/dL (74-106); SGOT/AST 14 U/L (15-37); SGPT/ALT 13 U/L (12-78); TOT PROT 7.1 g/dl (6.4-8.2)
[2017-07-11] MEDS: oxyCODONE HCL 5 MG TABLET PO PRN ×2 (08:31→19:10)
[2017-07-11] MEDS ORDERED: FESOTERODINE FUMARATE 4 MG PO SCH (10:00)
[2017-07-11] MEDS ORDERED: PT OWN MED DRAWER 7, Y5N ONE ×3 (10:20→20:18)
[2017-07-11] MEDS: CHOLECALCIFEROL (VITAMIN D3) 1,000 UNIT TABLET (FP) PO SCH (10:24)
[2017-07-11] MEDS: DULoxetine HCL 30 MG CAPSULE.DR (FP) PO SCH (10:24)
[2017-07-11] MEDS: CALCIUM CARBONATE 650 MG TABLET PO SCH ×2 (10:25→21:44)
[2017-07-11] MEDS: PANTOPRAZOLE 40 MG TABLET (FP) PO SCH (10:25)
[2017-07-11] MEDS: DRONEDARONE HCL 400 MG TAB (FP) PO SCH ×2 (10:25→21:45)
[2017-07-11] MEDS: TOLTERODINE TARTRATE LA 4 MG CAP.SR.24H (FP) PO SCH (10:25)
[2017-07-11] MEDS: MULTIVITAMINS (DAILY MVI) TABLET (FP) PO SCH (10:25)
[2017-07-11] MEDS: CARVEDILOL 3.125 MG TABLET (FP) PO SCH ×2 (10:25→21:44)
[2017-07-11] MEDS: DOCUSATE SODIUM 100 MG CAPSULE (FP) PO PRN (11:48)
--- NOTE | 2017-07-11 12:53 | PN ---
Progress Note (short form) - Note Progress Note: comfortable complained of small amt of blood earlier from nose inr was 14 !! at present no bleeding want to stay today - concerned inr 7 today Vital Signs Temp 98.7 F 07/11/17 05:00 Pulse 83 07/11/17 05:00 Resp 18 07/11/17 05:00 BP 129/76 07/11/17 05:00 Pulse Ox 98 07/10/17 23:24 Intake & Output 07/10/17 07/11/17 07/11/17 23:59 11:59 23:59 Intake Total 700 Balance 700 Weight 131 lb Intake: Oral 700 Other: Voiding Method Incontinent Incontinent # Unmeasured Voids Void 1 1 Bowel Movement No No Height 5 ft Body Mass Index (BMI) 25.5 Weight Measurement Method [facility] Active Medications Atorvastatin Calcium (Lipitor -) 40 mg PO HS [facility] Last Admin: 07/10/17 21:36 Dose: 40 mg Bumetanide (Bumex -) 0.5 mg PO DAILY [facility] Calcium Carbonate (Calcium Carbonate -) 650 mg PO BID [facility] Last Admin: 07/11/17 10:25 Dose: 650 mg Carvedilol (Coreg -) 3.125 mg PO BID [facility] Last Admin: 07/11/17 10:25 Dose: 3.125 mg Cholecalciferol (Vitamin D3 -) 1,000 unit PO DAILY [facility] Last Admin: 07/11/17 10:24 Dose: 1,000 unit Docusate Sodium (Colace -) 100 mg PO BID PRN PRN Reason: CONSTIPATION Last Admin: 07/11/17 11:48 Dose: 100 mg Dronedarone (Multaq -) 400 mg PO BID [facility] Last Admin: 07/11/17 10:25 Dose: 400 mg Duloxetine HCl (Cymbalta -) 60 mg PO DAILY [facility] Last Admin: 07/11/17 10:24 Dose: 60 mg Gabapentin (Neurontin -) 400 mg PO TID [facility] Last Admin: 07/11/17 05:32 Dose: 400 mg Multivitamins/Minerals/Vitamin C (Tab-A-Vit -) 1 tab PO DAILY [facility] Last Admin: 07/11/17 10:25 Dose: 1 tab Non-Formulary Medication (Cyclosporine [Restasis]) 1 drop OU BID [facility] Oxycodone HCl (Roxicodone -) 5 mg PO Q6H PRN PRN Reason: PAIN LEVEL 6-10 Last Admin: 07/11/17 08:31 Dose: 5 mg Pantoprazole Sodium (Protonix -) 40 mg PO DAILY [facility] Last Admin: 07/11/17 10:25 Dose: 40 mg Polyethylene Glycol (Miralax (For Daily Use) -) 17 gm PO DAILY [facility] Tolterodine Tartrate (Detrol La -) 4 mg PO DAILY [facility] Last Admin: 07/11/17 10:25 Dose: 4 mg CBC, BMP 07/11/17 07:00 07/11/17 07:00 INR, PTT INR 7.47 (0.82-1.09) H* D 07/11/17 07:00 Physical Examination Constitutional: Yes: No Distress, Calm Eyes: Yes: Conjunctiva Clear Neck: Yes: Supple Cardiovascular: Yes: Regular Rate and Rhythm Respiratory: Yes: CTA Bilaterally Gastrointestinal: Yes: Soft Extremities: Yes: Cyanosis Neurological: Yes: Alert Psychiatric: Yes: Alert Assessment/Plan stable Monitor today f/u inr will follow hold plavix and coumadin. anticipate d/c tomorrow
[2017-07-11] MEDS: BUMETANIDE 0.5 MG TABLET PO SCH (13:31)
[2017-07-11] MEDS: POLYETHYLENE GLYCOL 3350 119 GM BTL PO SCH (13:31)
[2017-07-11] MEDS: ATORVASTATIN CA 40 MG TABLET (FP) PO SCH (21:44)
[2017-07-12] MEDS: oxyCODONE HCL 5 MG TABLET PO PRN ×3 (03:36→16:46)
[2017-07-12] MEDS: GABAPENTIN 400 MG CAPSULE (FP) PO SCH ×2 (05:20→14:10)
[2017-07-12 08:09] LABS: INR 3.42 (0.82-1.09); PROTHROMBIN TIME (PATIENT) 38.6 SEC (9.7-13.0)
[2017-07-12] MEDS ORDERED: PT OWN MED DRAWER 7, Y5N ONE (09:06)
[2017-07-12] MEDS: DULoxetine HCL 30 MG CAPSULE.DR (FP) PO SCH (09:39)
[2017-07-12] MEDS: CARVEDILOL 3.125 MG TABLET (FP) PO SCH (09:39)
[2017-07-12] MEDS: TOLTERODINE TARTRATE LA 4 MG CAP.SR.24H (FP) PO SCH (09:39)
[2017-07-12] MEDS: MULTIVITAMINS (DAILY MVI) TABLET (FP) PO SCH (09:39)
[2017-07-12] MEDS: CHOLECALCIFEROL (VITAMIN D3) 1,000 UNIT TABLET (FP) PO SCH (09:39)
[2017-07-12] MEDS: PANTOPRAZOLE 40 MG TABLET (FP) PO SCH (09:39)
[2017-07-12] MEDS: CALCIUM CARBONATE 650 MG TABLET PO SCH (09:40)
[2017-07-12] MEDS: BUMETANIDE 0.5 MG TABLET PO SCH (09:40)
[2017-07-12] MEDS: DRONEDARONE HCL 400 MG TAB (FP) PO SCH (09:41)
[2017-07-12] MEDS: POLYETHYLENE GLYCOL 3350 119 GM BTL PO SCH (09:42)
[2017-07-12 11:41] VITALS: BP 112/57; PULSE 92; TEMP 98.5
[2017-07-12 12:52] LABS: BASO % 0.4 % (0-2.0); EOS % 2.5 % (0-4.5); HEMATOCRIT 29.1 % (32.4-45.2); HEMOGLOBIN 9.5 GM/dL (10.7-15.3); MCH 29.7 pg (25.7-33.7); MCHC 32.5 g/dl (32.0-36.0); MEAN CELL VOLUME 91.3 fl (80-96); MEAN PLT VOLUME 9.1 fl (7.5-11.1); MONO % 10.1 % (3.8-10.2); PLATELET COUNT 281 K/MM3 (134-434); RBC 3.19 M/mm3 (3.60-5.2); WHITE BLOOD COUNT 8.5 K/mm3 (4.0-10.0)
--- NOTE | 2017-07-12 13:39 | DS ---
Physical Examination Vital Signs: Vital Signs Temperature 98.5 F 07/12/17 10:00 Pulse Rate 92 H 07/12/17 10:00 Respiratory Rate 18 07/12/17 10:00 Blood Pressure 112/57 07/12/17 10:00 O2 Sat by Pulse Oximetry (%) 97 07/12/17 08:00 Findings/Remarks: feels well no complains alert and awake denies cp/sob/ cough denies urinary burning. Constitutional: Yes: No Distress, Calm Eyes: Yes: Conjunctiva Clear Neck: Yes: Supple Cardiovascular: Yes: Regular Rate and Rhythm Respiratory: Yes: CTA Bilaterally Gastrointestinal: Yes: Soft. No: Abdomen, Obese Edema: No Neurological: Yes: Alert Labs: CBC, BMP 07/12/17 11:42 07/11/17 07:00 Discharge Summary Reason For Visit: SUPRATHERAPEUTIC INR Current Active Problems Supratherapeutic INR (Acute) Hospital Course: 87-year-old female sent from [facility] with a past medical history of CAD, CHF, A.fib on Coumadin, PVD, status post bilateral angioplasty, pvd- ischemic toes-- send for epistaxis/ supra therapeutic inr vit k given inr was 14 in er now 3.4 stable will d/c alf today restart coumadin tomorrow pt also on asa/ plavix -- to be monitoered by pmd Pt to continue f/u at wound care/ hyperbaric meds reconcilled hcs looked pt in agreement discussed with nursing staff also\ Condition: Stable - Instructions Referrals: Demar Paige MD [Primary Care Provider] - Disposition: SNF FACILITY - Home Medications Comprehensive Discharge Medication List: Ambulatory Orders Bumetanide 0.5 mg PO DAILY 05/12/14 Clopidogrel Bisulfate [Clopidogrel] 75 mg PO DAILY 05/12/14 Dronedarone HCl [Multaq] 400 mg PO BID 05/12/14 Esomeprazole Mag Trihydrate [Nexium] 40 mg PO DAILY 05/12/14 Fesoterodine Fumarate [Toviaz] 4 mg PO DAILY 05/12/14 Atorvastatin Ca [Lipitor] 40 mg PO HS 03/13/17 Calcium Carb/Magnesium Hydrox [Antacid Chewable Tablet] 1 each PO BID 03/13/17 Carvedilol [Coreg] 3.125 mg PO DAILY 03/13/17 Cyclosporine [Restasis] 1 drop OU BID 03/13/17 Gabapentin [Neurontin] 400 mg PO TID 03/13/17 Multivit-Min/Iron Fum/Folic AC [Mauio-Sldmltn-Oecxadch Tablet] 1 tab PO DAILY Aspirin [ASA -] 81 mg PO DAILY tab.chew 04/17/17 Tolterodine Tartrate LA [Detrol LA -] 4 mg PO DAILY cap.sr.24h 04/17/17 Ascorbic Acid [Vitamin C] 500 mg PO BID 07/10/17 Cholecalciferol (Vitamin D3) [Vitamin D3] 1,000 unit PO DAILY 07/10/17 Duloxetine HCl 60 mg PO DAILY 07/10/17 oxyCODONE HCL [Roxicodone -] 5 mg PO QID PRN MDD 4 07/10/17 Docusate Sodium [Colace -] 100 mg PO BID PRN capsule 07/12/17 Polyethylene Glycol 3350 [Miralax 119 gm Btl -] 17 gm PO DAILY bottle 07/12/17 Warfarin Na [Coumadin -] 3 mg PO DAILY@1800 30 Days #60 tablet 07/12/17
[2017-07-12] MEDS: DOCUSATE SODIUM 100 MG CAPSULE (FP) PO PRN (14:10)
--- NOTE | 2017-07-15 11:30 | EKG ---
Test Reason : Blood Pressure : / mmHG Vent. Rate : 092 BPM Atrial Rate : 092 BPM P-R Int : 154 ms QRS Dur : 064 ms QT Int : 376 ms P-R-T Axes : 057 012 051 degrees QTc Int : 464 ms POOR DATA QUALITY, INTERPRETATION MAY BE ADVERSELY AFFECTED NORMAL SINUS RHYTHM INFERIOR INFARCT (CITED ON OR BEFORE 01-JUN-2017) ABNORMAL ECG WHEN COMPARED WITH ECG OF 01-JUN-2017 15:51, NO SIGNIFICANT CHANGE WAS FOUND Confirmed by GABE GAYLE, KRISTEN ([id number]) on 07/15/2017 11:29:40 AM Referred By: Confirmed By:KRISTEN BERNAL MD
== END 2017-07-12 17:35 ==
LOC: JER 13:11 → JERBED 15:18 → J8W 16:41
PROVIDERS: ADMIT Internal Medicine; ATTEND Internal Medicine
DX: R79.1 Abnormal coagulation profile (principal); I25.10 Atherosclerotic heart disease of native coronary artery without angina pectoris; I96 Gangrene, not elsewhere classified; I10 Essential (primary) hypertension; I50.9 Heart failure, unspecified; I73.9 Peripheral vascular disease, unspecified; I48.0 Paroxysmal atrial fibrillation; K21.9 Gastro-esophageal reflux disease without esophagitis; G82.20 Paraplegia, unspecified; M19.90 Unspecified osteoarthritis, unspecified site; M81.0 Age-related osteoporosis without current pathological fracture; Z95.1 Presence of aortocoronary bypass graft; Z98.61 Coronary angioplasty status; Z79.01 Long term (current) use of anticoagulants
CPT/HCPCS: 36415; 80053; 85025; 85027; 85610; 86850; 86900; 86901; 93005; 93010; 99285-25; G0378

== ENCOUNTER 2018-03-08 09:44 | Day surgery (SDC) | payer OTHER ==
[2018-03-08] MEDS ORDERED: LIDOCAINE HCL/PF 2% SDV 5ML VIAL ONE (10:07)
[2018-03-08 11:23] VITALS: PULSE 90
[2018-03-08 11:54] VITALS: BP 116/63; TEMP 97.8
--- NOTE | 2018-03-10 16:03 | PATH ---
Surgical Pathology Report Patient Name: ABHIJEET DENNIS [facility]. Rec. #: [id number] /Age/Gender: 1930 (Age: 88) / F Account: [id number] Location: [facility] Taken: 03/09/2018 Received: 03/09/2018 Reported: 03/10/2018 Physicians: Rafael Bradley M.D. Specimen(s) Received ANTRUM BIOPSY Clinical History Dysphagia Postoperative diagnosis: Gastritis, esophageal stricture Final Diagnosis ANTRUM, BIOPSY: GASTRIC MUCOSA SHOWING CHRONIC GASTRITIS WITH INTESTINAL METAPLASIA. IMMUNOSTAIN FOR H. PYLORI IS NEGATIVE. Electronically Signed Melissa Bosch M.D. Gross Description Received in formalin, labeled "antrum" are 3 mendosa, irregular portions of soft tissue measuring 0.2 and 0.3 cm. in greatest dimension. The specimens are submitted in toto in [one] cassette. MLSZ/03/09/2018 sanml/03/09/2018
== END 2018-03-08 12:00 | disposition home or self-care (01) ==
LOC: FASU-ENDO 09:44
PROVIDERS: ATTEND Internal Medicine Gastroenterology
PROC: 0D748DZ Dilation of Esophagogastric Junction with Intraluminal Device, Via Natural or Artificial Opening Endoscopic (ICD-10-PCS; 2018-03-08)
PROC: 0DB68ZX Excision of Stomach, Via Natural or Artificial Opening Endoscopic, Diagnostic (ICD-10-PCS; principal; 2018-03-08 10:48)
DX: K22.2 Esophageal obstruction (principal); K29.50 Unspecified chronic gastritis without bleeding; R13.10 Dysphagia, unspecified
CPT/HCPCS: 88305-TC; 88342-TC

== ENCOUNTER 2018-03-08 12:08 | Emergency (ER) | payer OTHER ==
--- NOTE | 2018-03-08 12:10 | PDOC ---
History of Present Illness - General Stated Complaint: VOMITED BLOOD Time Seen by Provider: 03/08/18 12:10 - History of Present Illness Initial Comments: 03/08/18 13:30 88 years old from [facility] with past medical history significant for CAD CHF A. fib on Coumadin peripheral vascular disease status post endoscopy today with dilatation of stricture and gastric biopsy. Procedure went well patient was discharged while awaiting her ambulatory to take her back to [facility] had one episode of hematemesis and came to the emergency department patient states she feels a little nauseous and is complaining of her chronic bilateral lower extremity pain Symptoms are limited to one episode nausea is mild persistent constant Past History - Past Medical History Allergies/Adverse Reactions: Allergies Allergy/AdvReac Type Severity Reaction Status Date / Time No Known Allergies Allergy Verified 03/05/18 09:47 Home Medications: Ambulatory Orders Bumetanide 0.5 mg PO DAILY 05/12/14 Clopidogrel Bisulfate [Clopidogrel] 75 mg PO DAILY 05/12/14 Dronedarone HCl [Multaq] 400 mg PO BID 05/12/14 Esomeprazole Mag Trihydrate [Nexium] 40 mg PO DAILY 05/12/14 Fesoterodine Fumarate [Toviaz] 4 mg PO DAILY 05/12/14 Atorvastatin Ca [Lipitor] 40 mg PO HS 03/13/17 Calcium Carb/Magnesium Hydrox [Antacid Chewable Tablet] 1 each PO BID 03/13/17 Carvedilol [Coreg] 3.125 mg PO DAILY 03/13/17 Cyclosporine [Restasis] 1 drop OU BID 03/13/17 Gabapentin [Neurontin] 400 mg PO TID 03/13/17 Multivit-Min/Iron Fum/Folic AC [Tibly-Eccxmah-Acemaucs Tablet] 1 tab PO DAILY Aspirin [ASA -] 81 mg PO DAILY tab.chew 04/17/17 Tolterodine Tartrate LA [Detrol LA -] 4 mg PO DAILY cap.sr.24h 04/17/17 Ascorbic Acid [Vitamin C] 500 mg PO BID 07/10/17 Cholecalciferol (Vitamin D3) [Vitamin D3] 1,000 unit PO DAILY 07/10/17 Duloxetine HCl 60 mg PO DAILY 07/10/17 oxyCODONE HCL [Roxicodone -] 5 mg PO QID PRN MDD 4 07/10/17 Docusate Sodium [Colace -] 100 mg PO BID PRN capsule 07/12/17 Polyethylene Glycol 3350 [Miralax 119 gm Btl -] 17 gm PO DAILY bottle 07/12/17 Warfarin Na [Coumadin -] 3 mg PO DAILY@1800 30 Days #60 tablet 07/12/17 Collagenase Clostridium Hist. [Santyl] 1 applic TP DAILY #90 oint...g. 08/07/17 Ceftriaxone 500 mg PO TID 11/13/17 Polyethylene Glycol 3350 [Miralax (For Daily Use) -] 17 gm PO DAILY 03/08/18 Anemia: No Asthma: No Cancer: No Cardiac Disorders: No CVA: No COPD: No CHF: Yes Dementia: No Diabetes: No GI Disorders: Yes (gerd) Disorders: No HTN: Yes Hypercholesterolemia: Yes (PVD) Liver Disease: No Psychiatric Problems: Yes (major depressive disorder) Seizures: No Thyroid Disease: No - Surgical History Abdominal Surgery: Yes Appendectomy: No Cardiac Surgery: Yes (QUADRUPLE CABG 2007) Cholecystectomy: No Lung Surgery: No Neurologic Surgery: No Orthopedic Surgery: No - Immunization History Immunization Up to Date: Yes - Suicide/Smoking/Psychosocial Hx Smoking History: Never smoked Have you smoked in the past 12 months: No If you are a former smoker, when did you quit?: 1994 Hx Alcohol Use: No Drug/Substance Use Hx: No Substance Use Type: None Hx Substance Use Treatment: No Review of Systems - Review of Systems Comments:: 03/08/18 13:30 ROS: A complete review of 10 out of 10 review of systems is taken and is negative apart from what is previously mentioned below and in the HPI. *Physical Exam - Physical Exam Comments: 03/08/18 13:33 Vitals: Triage Vital signs reviewed General Appearance: no acute distress, well nourished well developed, Head: Atraumatic, Throat: Posterior oropharynx without erythema, mucous membranes moist, Neck: Supple;No Nucal rigidity Chest Wall: Nontender Cardiac: Regular rate and rhythym, Lungs: Clear to auscultation bilateral, good air movement bilaterally, Abdomen: Soft, non distended, normal bowel sounds, non tender to palpation Extremities: Full range of motion to all extremities, no cyanosis, clubbing, or edema Skin: Warm and dry, no rashes or lesions, no rash, no petechiae Psych: normal mood, normal affect Heart Score/ECG Review - ECG Impressions Comment:: 03/08/18 13:40 EKG performed at 1240 demonstrates sinus rhythm [address] elevations or T- wave inversions. Interpreted by me. ED Treatment Course - LABORATORY CBC & Chemistry Diagram: 03/08/18 12:40 03/08/18 12:40 Medical Decision Making - Medical Decision Making 03/08/18 13:34 History of hematemesis after endoscopy Case discussed with Dr. Bradley gastroenterology who performed the procedure Stated that there was some blood in his view status post the stricture dilatation and the biopsy most likely this was the blood that she had vomited If labs are stable and no additional episodes of hematemesis patient can be discharged back to [facility] We'll observe patient for 1-2 hours and reassess 03/08/18 13:57 Reevaluation no additional vomiting patient observed in the emergency department 2 hours vital signs and blood work within normal limits At this point patient is safe to return home we'll recommend soft diet and follow-up with her door maker Findings, the need for follow-up and strict return instructions discussed with patient and web press operator assistant. *DC/Admit/Observation/Transfer Diagnosis at time of Disposition: Hematemesis Qualifiers: Nausea presence: with nausea Qualified Code(s): K92.0 - Hematemesis - Discharge Dispostion Disposition: HOME Condition at time of disposition: Stable Decision to Admit order: No - Referrals Referrals: Rafael Bradley MD [Staff Physician] - - Patient Instructions Printed Discharge Instructions: DI for Vomiting -- Adult Additional Instructions: Soft diet and liquids only for the next 24 hours. Follow-up with her door maker X week. Return to ED for any severe worsening symptoms or for any concerns. - Post Discharge Activity
[2018-03-08] MEDS ORDERED: ONDANSETRON 4 MG/2 ML VIAL IVPUSH ONE (12:34)
[2018-03-08 12:41] VITALS: TEMP 97.8; BMI 25.9
[2018-03-08] MEDS ORDERED: ONDANSETRON 4 MG/2 ML VIAL ONE (12:45)
[2018-03-08 13:07] LABS: BASO % 0.6 % (0-2.0); EOS % 2.7 % (0-4.5); HEMATOCRIT 33.5 % (32.4-45.2); HEMOGLOBIN 10.9 GM/dl (10.7-15.3); LYMPH % 22.8 % (8-40); MCH 30.6 pg (25.7-33.7); MCHC 32.6 g/dl (32.0-36.0); MEAN CELL VOLUME 93.8 fl (80-96); MEAN PLT VOLUME 9.7 fl (7.5-11.1); MONO % 7.3 % (3.8-10.2); NEUT % 66.6 % (42.8-82.8); PLATELET COUNT 286 K/MM3 (134-434); RBC 3.58 M/mm3 (3.60-5.2); RDW 15.6 % (11.6-15.6); WHITE BLOOD COUNT 9.5 K/mm3 (4.0-10.8)
[2018-03-08 13:17] LABS: ACTIVATED PTT 23.4 SECONDS (25.2-36.5)
[2018-03-08 13:19] LABS: ALBUMIN 3.8 g/dl (3.5-5.0); ALK PHOS 79 U/L (32-92); ANION GAP 10 MMOL/L (8-16); BILIRUBIN,TOTAL 0.3 mg/dl (0.2-1.0); BLOOD UREA NITROGEN 25 mg/dl (7-18); CALCIUM 8.6 mg/dl (8.4-10.2); CHLORIDE 102 mmol/L (98-107); CO2 23 mmol/L (22-28); GLUCOSE,RANDOM 152 mg/dl (74-106); POTASSIUM 4.8 mmol/L (3.5-5.1); SGOT/AST 45 U/L (10-42); SGPT/ALT 40 U/L (10-40); SODIUM 135 mmol/L (136-145); TOT PROT 7.6 g/dl (6.4-8.3)
[2018-03-08 13:21] LABS: INR 1.53 (0.82-1.09)
[2018-03-08] MEDS ORDERED: ACETAMINOPHEN 1000 MG/100 ML VIAL (NON FORMULARY) IVPB ONE (13:22)
[2018-03-08] MEDS ORDERED: ACETAMINOPHEN INJECTION 100 ML IVPB ONE (13:23)
[2018-03-08] MEDS ORDERED: ONDANSETRON *ODT* 4 MG TABLET SL ONE (14:42)
[2018-03-08] MEDS ORDERED: ONDANSETRON *ODT* 4 MG TABLET ONE (14:47)
[2018-03-08 17:18] VITALS: BP 98/50; PULSE 64
--- NOTE | 2018-03-09 16:59 | EKG ---
Test Reason : Blood Pressure : / mmHG Vent. Rate : 101 BPM Atrial Rate : 101 BPM P-R Int : 144 ms QRS Dur : 072 ms QT Int : 366 ms P-R-T Axes : 060 038 071 degrees QTc Int : 474 ms SINUS TACHYCARDIA OTHERWISE NORMAL ECG Confirmed by MD AMY, CATALINA ([id number]) on 03/09/2018 4:58:51 PM Referred By: AMY VALENTINE Confirmed By:CATALINA REYES MD
== END 2018-03-08 15:00 | disposition home or self-care (01) ==
LOC: FER 12:08
PROC: 3E033NZ Introduction of Analgesics, Hypnotics, Sedatives into Peripheral Vein, Percutaneous Approach (ICD-10-PCS; principal; 2018-03-08)
PROC: 3E033GC Introduction of Other Therapeutic Substance into Peripheral Vein, Percutaneous Approach (ICD-10-PCS; 2018-03-08)
DX: K92.0 Hematemesis (principal); I48.91 Unspecified atrial fibrillation; I50.9 Heart failure, unspecified; I25.10 Atherosclerotic heart disease of native coronary artery without angina pectoris; I10 Essential (primary) hypertension; K21.9 Gastro-esophageal reflux disease without esophagitis; Z95.1 Presence of aortocoronary bypass graft
CPT/HCPCS: 36415; 71045-TC-FY; 80053; 85025; 85610; 85730; 86850; 86900; 86901; 93005; 96374; 96375; 99285-25; J0131; Q0162